=== PATIENT | male | born 1960 | race Caucasian/White ===

== ENCOUNTER 2020-08-27 09:09 | Outpatient (REF) | payer OTHER, SELFPAY | END 2020-08-27 09:10 | disposition home or self-care (01) | LOC: HO.HMGCLDS 09:09 | PROVIDERS: PCP Internal Medicine; Visit Provider Internal Medicine | DX: Z20.828 Contact with and (suspected) exposure to other viral communicable diseases (principal) | CPT/HCPCS: 87635 ==

== ENCOUNTER 2020-09-20 09:54 | Outpatient (REF) | payer OTHER, SELFPAY | END 2020-09-20 09:55 | disposition home or self-care (01) | LOC: HO.HMGCLDS 09:54 | PROVIDERS: Visit Provider Internal Medicine | DX: Z20.828 Contact with and (suspected) exposure to other viral communicable diseases (principal) | CPT/HCPCS: C9803; U0003 ==

== ENCOUNTER 2022-10-04 08:51 | Outpatient (REF) | payer OTHER, SELFPAY ==
[2022-10-04 11:01] LABS: MANUAL DIFF FLAG NO
[2022-10-04 11:03] LABS: Basophils Absolute Auto 0.1 X10*3/uL (0.0-0.2); Basophils Percent Auto 1.2 % (0-2); Eosinophils Absolute Auto 0.2 X10*3/uL (0.0-0.4); Hematocrit 46.3 % (42.0-52.0); Hemoglobin 16.6 g/dl (14.0-18.0); Imm Gran Abs Auto 0.02 X10*3/uL (0.00-0.03); Imm Gran Pct Auto 0.3 % (0.0-0.4); Lymphocytes Absolute Auto 2.3 X10*3/uL (1.2-4.9); Lymphocytes Percent Auto 33.8 % (20-40); Mean Corpuscular HGB Conc 35.9 g/dl (31.0-36.0); Mean Corpuscular Volume 94.9 fL (80.0-98.0); Monocytes Absolute Auto 0.5 X10*3/uL (0.1-1.2); Monocytes Percent Auto 7.7 % (2-11); Neutrophils Absolute Auto 3.6 x10*3/uL (2.0-8.3); Platelet Count 161 X10*3/uL (160-400); Red Blood Count 4.88 X10*6/uL (4.60-5.80); Red Cell Distribution Width 11.9 % (11.0-16.0); White Blood Count 6.7 X10*3/uL (4.8-10.8)
[2022-10-04 11:29] LABS: Creatinine Urine 106.17 mg/dL; Microalbum/Creatinine Ratio Ur 32.9 ug/mg cr
[2022-10-04 11:57] LABS: Estimated Average Glucose 278 mg/dL; Hemoglobin A1c % 11.3 %
[2022-10-04 12:18] LABS: Alanine Aminotransferase 94 U/L (0-40); Albumin Level 4.5 g/dL (3.5-5.0); Alkaline Phosphatase 98 U/L (39-117); Anion Gap 13 (12-20); Aspartate Amino Transferase 49 U/L (5-37); Bilirubin Total 1.4 mg/dL (0.0-1.0); Blood Urea Nitrogen 10 mg/dL (9-16); Calcium 9.1 mg/dL (8.4-10.2); Carbon Dioxide 28 mmol/L (22-29); Chloride 97 mmol/L (96-108); Cholesterol 128 mg/dL; Estimated Glomerular Filt Rate > 60; Glucose Fasting 294 mg/dL (60-99); HDL Cholesterol 43 mg/dL; Iron 156 mcg/dL (45-160); LDL Cholesterol Calculated 61 mg/dl; PSA,Total (Free>4and<10) 1.54 ng/mL (0.00-4.00); Percent Iron Saturation 53 % (15-50); Sodium 134 mmol/L (135-145); Total Iron Binding Capacity 297 mcg/dL (228-428); Total Protein 7.5 g/dL (6.5-8.0); Triglycerides 122 mg/dL; Unsaturated Iron Binding 141 ug/dL
== END 2022-10-04 08:52 | disposition home or self-care (01) ==
LOC: HO.HMGCLDS 08:51
PROVIDERS: PCP Internal Medicine; Visit Provider Internal Medicine
DX: Z00.00 Encounter for general adult medical examination without abnormal findings (principal); Z12.5 Encounter for screening for malignant neoplasm of prostate; E11.9 Type 2 diabetes mellitus without complications; I25.10 Atherosclerotic heart disease of native coronary artery without angina pectoris; E83.119 Hemochromatosis, unspecified
CPT/HCPCS: 36415; 80053; 80061; 82043; 83036; 83540; 84153; 85025

== ENCOUNTER → 2022-10-31 11:09 | Outpatient (BNV) | payer OTHER, SELFPAY | PROVIDERS: PCP Internal Medicine; Referring Provider Internal Medicine; Visit Provider Internal Medicine | DX: E83.119 Hemochromatosis, unspecified (principal); Z91.198 Patient's noncompliance with other medical treatment and regimen for other reason | CPT/HCPCS: 99204; 99213; 99214 ==

== ENCOUNTER 2022-11-25 10:54 | Outpatient (REF) | payer OTHER, SELFPAY | END 2022-11-25 10:55 | disposition home or self-care (01) | LOC: HO.BBR 10:54 | PROVIDERS: PCP Internal Medicine; Visit Provider Internal Medicine | DX: Z13.89 Encounter for screening for other disorder (principal) ==

== ENCOUNTER 2023-09-10 10:59 | Outpatient (AMB) | payer OTHER, SELFPAY ==
[2023-09-10 11:06] VITALS: BP 142/80; PULSE 75; O2SAT 96; BMI 37.0
--- NOTE | 2023-09-10 11:06 | MHC.PC.OV ---
Vital Signs 09/10/23 11:06 Height 5 ft 6 in Weight 229 lb BMI 37.0 BP 142/80 H Blood Pressure Location Rt brachial Position Sitting Pulse 75 Pulse Source Pulse Oximeter Pulse Oximetry (%) 96 Oxygen Delivery Method Room Air Intake Visit Reasons: shoulder pain Intake Note: Pt is here today for a sick visit. Pt c/o R should pain that goes down to his elbow and hand. Pt states that it has been going on for last 4 months. Allergies dulaglutide [From [facility]] Adverse Reaction (Intermediate, Verified 09/10/23 11:45) Nausea Medication List - Last Reconciled 09/10/23 by Maine Wheat MD atorvastatin 80 mg PO DAILY FreeStyle Lite Meter (blood-glucose meter) As directed to test blood sugar NS FreeStyle Lite Strips (blood sugar diagnostic) Test blood sugar once a day NS lancets (FreeStyle Lancets) Test blood sugar once a day metformin ER 750 mg PO BID metoprolol succinate ER 50 mg PO DAILY vardenafil 20 mg PO DAILY Tobacco use date assessed: 09/10/23 Dental Screening Dental Screen Date: 09/10/23 Did you have a dental visit in the last 12 months?: Yes Did you have a dental problem in the last 6 months where you did not have access to dental care?: No Was dental information given to patient?: Patient has dentist HPI shoulder pain HPI Details Pt c/o R shoulder pain for 5 months. Pt states shoulder pain worse when working lifting, pulling or pushing. He has been working every other day which helps with shoulder pain. Patient has been taking medications for diabetes hyperlipidemia and hypertension. He has been monitoring his blood glucose occasionally with the readings around 100-130 in the mornings. [facility] Medical History Hyperlipidemia HTN (hypertension) CAD (coronary artery disease) DM type 2 (diabetes mellitus, type 2) Annual physical exam Hemochromatosis Rosacea Fatty liver Surgical History Hx of anterior cruciate ligament surgery History of carpal tunnel syndrome Family History Father HTN (hypertension) Hemochromatosis Spinal cord tumor Mother Stroke Sister No problems noted. Son No problems noted. Daughter No problems noted. Daughter No problems noted. Social History Household Members: Significant Other Housing: Apartment Patient Tobacco Use Status: Never used Tobacco e-Cigarette/Vaping Use: Never Used service: No Current occupational status: unemployed Cognitive needs: No Hearing needs: No Vision needs: No Questionnaire AUDIT C Alcohol Use Questionnaire (AUDIT-C) 1. How often do you have a drink containing alcohol?: Monthly or less 2. How many drinks containing alcohol do you have on a typical day when you are drinking?: 1 or 2 3. How often do you have six or more drinks on one occasion?: Never Total Score: 1 Review of Systems Const All systems reviewed & are unremarkable except as noted in HPI and below Reports no additional complaints Eyes Reports no additional complaints ENT Reports no additional complaints Card Reports no additional complaints Resp Reports no additional complaints GI Reports no additional complaints Reports no additional complaints Physical exam (Primary Care) Vital Signs: Last Vital Signs Pulse 75 09/10/23 11:06 BP 142/80 H 09/10/23 11:06 Pulse Ox 96 09/10/23 11:06 Oxygen Delivery Method Room Air 09/10/23 11:06 BMI result Body Mass Index 37.0 Tobacco/Smoking Status: Tobacco use Status Tobacco use date assessed 09/10/23 09/10/23 11:16 Patient Tobacco Use Status Never used Tobacco 09/10/23 11:16 e-Cigarette/Vaping Use Never Used 09/10/23 11:11 Const General: no acute distress HENMT Ears: hearing grossly normal bilaterally General nose exam: Normal external nose present Resp Effort & Inspection: normal respiratory effort Auscultation: clear to auscultation bilaterally Cardio Rhythm: regular rhythm Heart sounds: S1 normal heart sound present and S2 normal heart sound present GI Inspection: Yes normal to inspection Palpation (GI): Soft to palpation Percussion: Yes normal to percussion Auscultation: normal bowel sounds Extrem Other: Tenderness over anterior and lateral aspect of right shoulder . there is significantly decreased range of motion Results AMB Hemoglobin A1c AMB Hemoglobin A1c 6.7 % Last Edit by LAURA Banerjee on 09/10/23 12:08 Assessment and Plan Assessment & Plan (1) DM type 2 (diabetes mellitus, type 2): Code(s): E11.9 - Type 2 diabetes mellitus without complications Plan: A1c is 6.7, ADA diet increase physical activity weight loss discussed with the patient he will continue metformin follow-up in 3 months with fasting labs before. Patient will be referred to podiatry for diabetic foot care (2) Hyperlipidemia: Code(s): E78.5 - Hyperlipidemia, unspecified Plan: Continue statin (3) HTN (hypertension): Code(s): I10 - Essential (primary) hypertension Plan: Increase metoprolol to 100 mg a day patient will return for blood pressure check in 2-3 weeks (4) Right shoulder pain: Code(s): M25.511 - Pain in right shoulder Plan: Check x-ray and refer to orthopedic surgeon Orders: Orders Comprehensive [place]. Panel Fast Today E11.9 - Type 2 diabetes mellitus without complications, E78.5 - Hyperlipidemia, unspecified, I10 - Essential (primary) hypertension Complete Blood Count Auto Diff Today E11.9 - Type 2 diabetes mellitus without complications, E78.5 - Hyperlipidemia, unspecified, I10 - Essential (primary) hypertension XR shoulder RT min 2V Today E11.9 - Type 2 diabetes mellitus without complications, E78.5 - Hyperlipidemia, unspecified, I10 - Essential (primary) hypertension AMB Hemoglobin A1c Today Z13.9 - Encounter for screening, unspecified Lipid Panel Today E11.9 - Type 2 diabetes mellitus without complications, E78.5 - Hyperlipidemia, unspecified, I10 - Essential (primary) hypertension Microalbumin, Random (w Creat) Today E11.9 - Type 2 diabetes mellitus without complications, E78.5 - Hyperlipidemia, unspecified, I10 - Essential (primary) hypertension Hemoglobin A1c 3 Months E11.9 - Type 2 diabetes mellitus without complications, E78.5 - Hyperlipidemia, unspecified, I10 - Essential (primary) hypertension, I25.10 - Atherosclerotic heart disease of [place] coronary artery without angina pectoris Comprehensive [place]. Panel Fast 3 Months E11.9 - Type 2 diabetes mellitus without complications, E78.5 - Hyperlipidemia, unspecified, I10 - Essential (primary) hypertension, I25.10 - Atherosclerotic heart disease of [place] coronary artery without angina pectoris Lipid Panel 3 Months E11.9 - Type 2 diabetes mellitus without complications, E78.5 - Hyperlipidemia, unspecified, I10 - Essential (primary) hypertension, I25.10 - Atherosclerotic heart disease of [place] coronary artery without angina pectoris Microalbumin, Random (w Creat) 3 Months E11.9 - Type 2 diabetes mellitus without complications, E78.5 - Hyperlipidemia, unspecified, I10 - Essential (primary) hypertension, I25.10 - Atherosclerotic heart disease of [place] coronary artery without angina pectoris Referrals Podiatry Referral E11.9 - Type 2 diabetes mellitus without complications, E78.5 - Hyperlipidemia, unspecified, I10 - Essential (primary) hypertension Orthopedics Referral E11.9 - Type 2 diabetes mellitus without complications, E78.5 - Hyperlipidemia, unspecified, I10 - Essential (primary) hypertension, M25.511 - Pain in right shoulder Medications: Changed From metoprolol succinate ER 50 mg PO DAILY 90 tabs 3RF To metoprolol succinate ER 100 mg (2 x 50 mg) PO DAILY 90 tabs 3RF Refilled metformin ER 750 mg PO BID 180 tabs 3RF vardenafil 20 mg PO DAILY 20 tabs 1RF Coding Level of Care Code Est Pt Level 4 (64128) Diagnoses DM type 2 (diabetes mellitus, type 2) E11.9 Hyperlipidemia E78.5 HTN (hypertension) I10 Right shoulder pain M25.511
== END 2023-09-10 12:17 | disposition home or self-care (01) ==
PROVIDERS: PCP Internal Medicine; Visit Provider Internal Medicine
DX: E11.9 Type 2 diabetes mellitus without complications (principal); E78.5 Hyperlipidemia, unspecified; I10 Essential (primary) hypertension; M25.511 Pain in right shoulder
CPT/HCPCS: 83036; 99214

== ENCOUNTER 2023-09-10 12:07 | Outpatient (REF) | payer OTHER, SELFPAY ==
--- NOTE | ~2023-09-10 | XR_ITS ---
EXAMINATION: XR SHOULDER, RIGHT CLINICAL INFORMATION: Right shoulder pain COMPARISON: MRI right shoulder 04/20/2008 TECHNIQUE: AP external rotation, Grashey, scapular Y, and axillary views of the right shoulder. FINDINGS: The bones are intact. No fracture. Glenohumeral and acromioclavicular alignment is anatomic. There is severe narrowing of the glenohumeral joint with areas of bone on bone appearance, large marginal osteophyte extending off the inferior aspect of the humeral head. There is a 0.9 cm ossific or calcific density near the superior aspect of the labrum which could represent a labral tear. 1.4 cm calcification is 60. To the distal clavicle. XR/XR shoulder RT min 2V IMPRESSION: Severe osteoarthritis of the glenohumeral joint.
== END 2023-09-10 12:08 | disposition home or self-care (01) ==
LOC: HO.HMGCX 12:07
PROVIDERS: PCP Internal Medicine; Visit Provider Internal Medicine
DX: M25.511 Pain in right shoulder (principal)
CPT/HCPCS: 73030

== ENCOUNTER 2023-09-12 07:45 | Outpatient (REF) | payer OTHER, SELFPAY ==
[2023-09-12 12:02] LABS: MANUAL DIFF FLAG NO
[2023-09-12 12:12] LABS: Basophils Absolute Auto 0.1 X10*3/uL (0.0-0.2); Basophils Percent Auto 0.9 % (0-2); Eosinophils Absolute Auto 0.3 X10*3/uL (0.0-0.4); Eosinophils Percent Auto 4.5 % (0-4); Hematocrit 45.3 % (42.0-52.0); Hemoglobin 15.6 g/dl (14.0-18.0); Imm Gran Abs Auto 0.01 X10*3/uL (0.00-0.03); Imm Gran Pct Auto 0.2 % (0.0-0.4); Lymphocytes Absolute Auto 1.8 X10*3/uL (1.2-4.9); Mean Corpuscular HGB Conc 34.4 g/dl (31.0-36.0); Mean Corpuscular Hemoglobin 33.9 pg (27.0-33.0); Mean Corpuscular Volume 98.5 fL (80.0-98.0); Mean Platelet Volume 10.5 fL (9.4-12.4); Monocytes Absolute Auto 0.5 X10*3/uL (0.1-1.2); Monocytes Percent Auto 8.2 % (2-11); Neutrophils Absolute Auto 3.3 x10*3/uL (2.0-8.3); Neutrophils Percent Auto 56.2 % (45-73); Platelet Count 144 X10*3/uL (160-400); Red Cell Distribution Width 12.8 % (11.0-16.0); White Blood Count 5.8 X10*3/uL (4.8-10.8)
[2023-09-12 12:21] LABS: Alanine Aminotransferase 38 U/L (0-40); Albumin Level 4.2 g/dL (3.5-5.0); Alkaline Phosphatase 87 U/L (39-117); Anion Gap 15 (12-20); Aspartate Amino Transferase 34 U/L (5-37); Bilirubin Total 2.1 mg/dL (0.0-1.0); Blood Urea Nitrogen 9 mg/dL (9-16); Calcium 9.2 mg/dL (8.4-10.2); Carbon Dioxide 25 mmol/L (22-29); Chloride 103 mmol/L (96-108); Cholesterol 160 mg/dL (<200); Estimated Glomerular Filt Rate > 60; Glucose Fasting 187 mg/dL (60-99); HDL Cholesterol 51 mg/dL (>40); LDL Cholesterol Calculated 74 mg/dL (<100); Potassium 3.8 mmol/L (3.3-5.1); Sodium 139 mmol/L (135-145); Total Protein 7.8 g/dL (6.5-8.0); Triglycerides 176 mg/dL (<150)
[2023-09-12 13:34] LABS: Creatinine Urine 223.63 mg/dL; Microalbum/Creatinine Ratio Ur 202.1 ug/mg cr (<30)
== END 2023-09-12 07:46 | disposition home or self-care (01) ==
LOC: HO.HMGCLDS 07:45
PROVIDERS: PCP Internal Medicine; Visit Provider Internal Medicine
DX: E78.5 Hyperlipidemia, unspecified (principal); E11.9 Type 2 diabetes mellitus without complications; I10 Essential (primary) hypertension
CPT/HCPCS: 36415; 80053; 80061; 82043; 82570; 85025

== ENCOUNTER 2023-10-01 08:19 | Outpatient (AMB) | payer OTHER, SELFPAY ==
--- NOTE | 2023-10-01 08:28 | MHC.OFFVIS ---
Intake Intake Visit Reasons: New Pt - right shoulder pain Intake Note: Norberto is a 63 year old right hand dominant male who presents today as new patient for a evaluation of his right shoulder pain and weakness. The patient states that he injured his right shoulder several years ago while chopping wood. He had acute onset of pain. Since that time his symptoms have gotten worse in spite of continued non operative treatments. He has done physical therapy for 12 weeks over the last 6 months as well as for 6 weeks over the last 3 months which aggravated his pain. He has tried Tylenol and anti-inflammatory medicines which gave him minimal relief. He has had injections which gave him no relief. The patient reports difficulty lifting his right hand above shoulder height. Allergies dulaglutide [From [facility]] Adverse Reaction (Intermediate, Verified 10/01/23 08:29) Nausea Medication List - Last Reconciled 10/01/23 by Fahad Bingham MD atorvastatin 80 mg PO DAILY FreeStyle Lite Meter (blood-glucose meter) As directed to test blood sugar NS FreeStyle Lite Strips (blood sugar diagnostic) Test blood sugar once a day NS lancets (FreeStyle Lancets) Test blood sugar once a day metformin ER 750 mg PO BID metoprolol succinate ER 100 mg (2 x 50 mg) PO DAILY vardenafil 20 mg PO DAILY [facility] Medical History Hyperlipidemia HTN (hypertension) CAD (coronary artery disease) DM type 2 (diabetes mellitus, type 2) Annual physical exam Hemochromatosis Rosacea Fatty liver Surgical History Hx of anterior cruciate ligament surgery History of carpal tunnel syndrome Family History Father HTN (hypertension) Hemochromatosis Spinal cord tumor Mother Stroke Sister No problems noted. Son No problems noted. Daughter No problems noted. Daughter No problems noted. Social History Household Members: Significant Other Housing: Apartment Patient Tobacco Use Status: Never used Tobacco e-Cigarette/Vaping Use: Never Used service: No Current occupational status: unemployed Cognitive needs: No Hearing needs: No Vision needs: No Physical Exam Const Other: Well-nourished well-developed very friendly male awake alert and oriented x3 in no acute distress Extrem Other: Bilateral upper extremity examination shows good capillary refill, no skin lesions noted, normal sensation light touch Right shoulder examination shows decreased range of motion when compared to his left shoulder, 4+ out of 5 strength with supraspinatus testing, positive impingement signs, tenderness over his acromioclavicular joint, no instability Results Reviewed Results Reviewed: X-rays of the patient's right shoulder show severe acromioclavicular joint narrowing, a type 2 acromion, mild to moderate glenohumeral joint degenerative changes Assessment & Plan Assessment & Plan (1) Right shoulder pain: Code(s): M25.511 - Pain in right shoulder Plan Mr. Granados presents with progressively worsening right shoulder pain and weakness possibly due to a full-thickness rotator cuff tear. Thus, I will send the patient for an MRI of his right shoulder to further evaluate the status of his rotator cuff tendons. I will see him back once the MRI is completed to discuss the findings and treatment options. Feel free to call me at any time should questions regarding his orthopedic management arise. Thank you very much for asking me to see this very friendly gentleman. I spent 22 minutes in reviewing the patient's records and imaging studies, seeing the patient and documenting in the medical record. Orders: Orders MR shoulder RT wo con Today M25.511 - Pain in right shoulder Coding Level of Care Code New Pt Level 2 (25808) Diagnoses Right shoulder pain M25.511
== END 2023-10-01 08:38 | disposition home or self-care (01) ==
PROVIDERS: PCP Internal Medicine; Visit Provider Orthopaedic Surgery
DX: M25.511 Pain in right shoulder (principal)
CPT/HCPCS: 99202

== ENCOUNTER → 2023-10-01 08:19 | Outpatient (BNVA) | payer OTHER, SELFPAY | PROVIDERS: PCP Internal Medicine; Visit Provider Orthopaedic Surgery ==

== ENCOUNTER 2023-10-22 14:57 | Outpatient (REF) | payer OTHER, SELFPAY ==
--- NOTE | ~2023-10-22 | MR_ITS ---
EXAMINATION: MR SHOULDER WITHOUT CONTRAST, RIGHT CLINICAL INFORMATION: Right shoulder pain. COMPARISON: Radiographs 09/10/2023. TECHNIQUE: MRI of the shoulder without contrast was performed on a high-field scanner. FINDINGS: ROTATOR CUFF: Supraspinatus tendinosis. No rotator cuff tear. No muscle atrophy or fatty infiltration. BICEPS: Proximal biceps tendinosis. CORACOACROMIAL ARCH: The undersurface of the acromion is flat with no subacromial spur. Moderate hypertrophic acromioclavicular osteoarthritis with a chronic ossification dorsally. LABRUM/CAPSULE: Diffuse degenerative tearing of the labrum. GLENOHUMERAL JOINT/MARROW: Extensive full-thickness cartilage loss with surface remodeling/concavity of the posterior glenoid and slight posterior subluxation of the humeral head. Large marginal osteophytes, particularly the inferomedial aspect of the humeral head. Small joint effusion. MR/MR shoulder RT wo con IMPRESSION: 1. Severe glenohumeral osteoarthritis. 2. Supraspinatus tendinosis. No rotator cuff tear. 3. Proximal biceps tendinosis. 4. Moderate hypertrophic acromioclavicular osteoarthritis.
== END 2023-10-22 14:58 | disposition home or self-care (01) ==
LOC: HO.MRI 14:57
PROVIDERS: PCP Internal Medicine; Visit Provider Orthopaedic Surgery
DX: M25.511 Pain in right shoulder (principal)
CPT/HCPCS: 73221

== ENCOUNTER 2023-10-28 14:14 | Outpatient (AMB) | payer OTHER, SELFPAY ==
--- NOTE | 2023-10-28 14:24 | MHC.OFFVIS ---
Intake Intake Visit Reasons: OV-Right shoulder MRI review Intake Note: Norberto is a 63 year old male who presents today for an MRI review of his right shoulder. States that his pain and stiffness have gotten worse over the last few years in spite of continued non operative treatments. The patient describes his right shoulder pain as sharp in nature. He has had injections in the past which gave him minimal relief. He has also done physical therapy exercises which aggravated his pain. The patient states that he has had difficulty lifting his right hand above shoulder height for the last year. He has tried Tylenol and anti-inflammatory medicines which gave him minimal relief. Allergies dulaglutide [From [facility]] Adverse Reaction (Intermediate, Verified 10/28/23 14:24) Nausea Medication List - Last Reconciled 10/28/23 by Fahad Bingham MD atorvastatin 80 mg PO DAILY FreeStyle Lite Meter (blood-glucose meter) As directed to test blood sugar NS FreeStyle Lite Strips (blood sugar diagnostic) Test blood sugar once a day NS lancets (FreeStyle Lancets) Test blood sugar once a day metformin ER 750 mg PO BID metoprolol succinate ER 100 mg PO DAILY vardenafil 20 mg PO DAILY [facility] Medical History Hyperlipidemia HTN (hypertension) CAD (coronary artery disease) DM type 2 (diabetes mellitus, type 2) Annual physical exam Hemochromatosis Rosacea Fatty liver Surgical History Hx of anterior cruciate ligament surgery History of carpal tunnel syndrome Family History Father HTN (hypertension) Hemochromatosis Spinal cord tumor Mother Stroke Sister No problems noted. Son No problems noted. Daughter No problems noted. Daughter No problems noted. Social History Household Members: Significant Other Housing: Apartment Patient Tobacco Use Status: Never used Tobacco e-Cigarette/Vaping Use: Never Used service: No Current occupational status: unemployed Cognitive needs: No Hearing needs: No Vision needs: No Physical Exam Const Other: Well-nourished well-developed very friendly male awake alert and oriented x3 in no acute distress Extrem Other: Bilateral upper extremity examination shows good capillary refill, no skin lesions noted, normal sensation light touch Right shoulder examination shows decreased active and passive range of motion when compared to his left shoulder, pain with range of motion, mild crepitus with range of motion, tenderness over his acromioclavicular joint, positive impingement signs, 5/5 strength with supraspinatus testing, no instability Results Reviewed Results Reviewed: MRI of the patient's right shoulder shows severe acromioclavicular joint narrowing, a type 2 acromion, moderate glenohumeral joint degenerative changes, signal change within the supraspinatus tendon most likely due to adhesive capsulitis Assessment & Plan Assessment & Plan (1) Right shoulder pain: Code(s): M25.511 - Pain in right shoulder Plan Mr. Granados presents with progressively worsening right shoulder pain and stiffness due to acromioclavicular joint arthritis, glenohumeral joint arthritis, impingement syndrome and adhesive capsulitis. I had a lengthy discussion with the patient regarding the treatment options. He wishes to hold off on total shoulder replacement surgery for as long as possible. I agree with this plan. The risks and benefits of right shoulder arthroscopic surgery were discussed at length with the patient. The patient wishes to proceed with surgery. Surgery will most likely involve right shoulder diagnostic arthroscopy with distal clavicle excision, acromioplasty, anterior capsular release, glenohumeral joint debride months and manipulation under anesthesia. The patient will contact my office to pick a surgery date. He will follow-up as instructed. Feel free to call me at any time should questions regarding his orthopedic management arise. I spent 22 minutes in reviewing the patient's records and imaging studies, seeing the patient and documenting in the medical record. Coding Level of Care Code Est Pt Level 2 (56585) Diagnoses Right shoulder pain M25.511
== END 2023-10-28 14:39 | disposition home or self-care (01) ==
PROVIDERS: PCP Internal Medicine; Visit Provider Orthopaedic Surgery
DX: M75.41 Impingement syndrome of right shoulder (principal); M19.011 Primary osteoarthritis, right shoulder
CPT/HCPCS: 99213

== ENCOUNTER → 2023-10-28 14:14 | Outpatient (BNVA) | payer OTHER, SELFPAY | PROVIDERS: PCP Internal Medicine; Visit Provider Orthopaedic Surgery ==

== ENCOUNTER 2023-11-26 10:05 | Outpatient (AMB) | payer OTHER, SELFPAY ==
[2023-11-26 10:08] VITALS: BMI 37.4
--- NOTE | 2023-11-26 10:08 | MHC.OFFVIS ---
Intake Vital Signs 11/26/23 10:08 Height 5 ft 6 in Weight 232 lb BMI 37.4 Intake Visit Reasons: Rt Shld 2/ Intake Note: Norberto is a 63 year old right hand dominant male who presents with progressively worsening right shoulder pain and stiffness. The patient states that he injured his right shoulder several years ago while chopping wood. He had acute onset of pain. Since that time his symptoms have gotten worse in spite of continued non operative treatments. He has done physical therapy for 12 weeks over the last 6 months as well as for 6 weeks over the last 3 months which aggravated his pain. He has tried Tylenol and anti-inflammatory medicines which gave him minimal relief. He has had injections which gave him no relief. The patient reports difficulty lifting his right hand above shoulder height. Allergies dulaglutide [From [facility]] Adverse Reaction (Intermediate, Verified 11/26/23 10:10) Nausea Medication List - Last Reconciled 11/26/23 by Fahad Bingham MD aspirin 81 mg PO DAILY atorvastatin 80 mg PO BEDTIME FreeStyle Lite Meter (blood-glucose meter) As directed to test blood sugar NS FreeStyle Lite Strips (blood sugar diagnostic) Test blood sugar once a day NS lancets (FreeStyle Lancets) Test blood sugar once a day metformin ER 750 mg PO BID metoprolol succinate ER 100 mg PO DAILY vardenafil 20 mg PO DAILY [facility] Medical History Severe obesity CAD (coronary artery disease) DM type 2 (diabetes mellitus, type 2) Annual physical exam Hemochromatosis Rosacea Fatty liver Hyperlipidemia HTN (hypertension) Surgical History Hx of CABG Hx of anterior cruciate ligament surgery History of carpal tunnel syndrome Family History Father HTN (hypertension) Hemochromatosis Spinal cord tumor Mother Stroke Sister No problems noted. Son No problems noted. Daughter No problems noted. Daughter No problems noted. Social History Household Members: Significant Other Housing: Apartment Patient Tobacco Use Status: Never used Tobacco e-Cigarette/Vaping Use: Never Used service: No Current occupational status: unemployed Cognitive needs: No Hearing needs: No Vision needs: No Physical Exam Vital Signs: BMI result Body Mass Index 37.4 Const Other: Well-nourished well-developed very friendly male awake alert and oriented x3 in no acute distress Lungs - clear to auscultation bilaterally with symmetric expansion Cardiovascular exam - regular rate and rhythm Abdominal exam - soft nontender nondistended Extrem Other: Bilateral upper extremity examination shows good capillary refill, no skin lesions noted, normal sensation light touch Right shoulder examination shows decreased active and passive range of motion when compared to his left shoulder, 5/5 strength with supraspinatus testing, positive impingement signs, tenderness over his acromioclavicular joint, no instability Results Reviewed Results Reviewed: MRI of the patient's right shoulder shows moderate glenohumeral joint degenerative changes, a type 2 acromion, severe acromioclavicular joint narrowing, signal change within the supraspinatus tendon due to adhesive capsulitis Assessment & Plan Assessment & Plan (1) Right shoulder pain: Code(s): M25.511 - Pain in right shoulder Plan Mr. Granados presents with progressively worsening right shoulder pain and stiffness due to impingement syndrome, acromioclavicular joint arthritis, glenohumeral joint arthritis and adhesive capsulitis. I had a lengthy discussion with the patient regarding the treatment options. At this point he has failed continued non operative treatments. The risks and benefits of right shoulder surgery were discussed at length with the patient. The patient wishes to proceed with surgery. Surgery will most likely involve right shoulder diagnostic arthroscopy with distal clavicle excision, acromioplasty, anterior capsular release and manipulation under anesthesia. The patient was given a prescription for Percocet at his preoperative appointment. He will follow-up as instructed. Feel free to call me at any time should questions regarding his orthopedic management arise. I spent 22 minutes in reviewing the patient's records and imaging studies, seeing the patient and documenting in the medical record. Medications: New oxycodone-acetaminophen 5-325 mg (Percocet) Partial Fill upon patient request. 2 tabs PO Q4H PRN 40 tabs 0RF pain Coding Level of Care Code Est Pt Level 2 (88238) Diagnoses Right shoulder pain M25.511
== END 2023-11-26 10:31 | disposition home or self-care (01) ==
PROVIDERS: PCP Internal Medicine; Visit Provider Orthopaedic Surgery
DX: M75.41 Impingement syndrome of right shoulder (principal); M19.011 Primary osteoarthritis, right shoulder
CPT/HCPCS: 99213

== ENCOUNTER → 2023-11-26 10:05 | Outpatient (BNVA) | payer OTHER, SELFPAY | PROVIDERS: PCP Internal Medicine; Visit Provider Orthopaedic Surgery ==

== ENCOUNTER 2023-12-03 09:18 | Outpatient (AMB) | payer OTHER, SELFPAY ==
--- NOTE | 2023-12-03 09:30 | MHC.PC.OV ---
Vital Signs 12/03/23 09:32 Height 5 ft 6 in Weight 233 lb BMI 37.6 BP 126/78 Blood Pressure Location Rt brachial Position Sitting Pulse 76 Pulse Source Pulse Oximeter Pulse Oximetry (%) 97 Oxygen Delivery Method Room Air Intake Visit Reasons: Pre Op 12/04/23 shoulder bone spurs Intake Note: Pt is here today for a pre op visit. Pt is having R shoulder surgery with Dr. Bingham tomorrow 12/04/23. Allergies dulaglutide [From [facility]] Adverse Reaction (Intermediate, Verified 12/03/23 09:38) Nausea Medication List - Last Reconciled 12/03/23 by Maine Wheat MD aspirin 81 mg PO DAILY atorvastatin 80 mg PO BEDTIME empagliflozin (Jardiance) 10 mg PO DAILY FreeStyle Lite Meter (blood-glucose meter) As directed to test blood sugar NS FreeStyle Lite Strips (blood sugar diagnostic) Test blood sugar once a day NS lancets (FreeStyle Lancets) Test blood sugar once a day metformin ER 750 mg PO BID metoprolol succinate ER 100 mg PO DAILY oxycodone-acetaminophen 5-325 mg (Percocet) 2 tabs PO Q4H PRN vardenafil 20 mg PO DAILY Tobacco use date assessed: 12/03/23 Dental Screening Dental Screen Date: 12/03/23 Did you have a dental visit in the last 12 months?: Yes Did you have a dental problem in the last 6 months where you did not have access to dental care?: No Was dental information given to patient?: Patient has dentist HPI Pre Op 12/04/23 shoulder bone spurs HPI Details Pt presents for preop for R shoulder severe osteoarthritis surgery. HTN, DM 2 hyperlipid, are stable on meds. PFSH Medical History Arthritis Myocardial infarction Severe obesity CAD (coronary artery disease) DM type 2 (diabetes mellitus, type 2) Annual physical exam Hemochromatosis Rosacea Fatty liver Hyperlipidemia HTN (hypertension) Surgical History Hx of CABG Hx of anterior cruciate ligament surgery History of carpal tunnel syndrome Family History Father HTN (hypertension) Hemochromatosis Spinal cord tumor Mother Stroke Sister No problems noted. Son No problems noted. Daughter No problems noted. Daughter No problems noted. Social History Household Members: Significant Other Housing: Apartment Are you a primary director critical care to a significant other at home: No Do you presently have visiting nurse or other home services: No Patient Tobacco Use Status: Never used Tobacco e-Cigarette/Vaping Use: Never Used service: No Current occupational status: unemployed Cognitive needs: No Hearing needs: No Vision needs: No Questionnaire PHQ-9 Over the last 2 weeks, how often have you been bothered by any of the following problems? 1. Little interest or pleasure in doing things: not at all 2. Feeling down, depressed, or hopeless: not at all 3. Trouble falling or staying asleep, or sleeping too much: nearly every day 4. Feeling tired or having little energy: nearly every day 5. Poor appetite or overeating: not at all 6. Feeling bad about yourself - or that you are a failure or have let yourself or your family down: not at all 7. Trouble concentrating on things, such as reading the newspaper or watching television: not at all 8. Moving or speaking so slowly that other people could have noticed. Or the opposite - being so fidgety or restless that you have been moving around a lot more than usual: not at all 9. Thoughts that you would be better off or of hurting yourself in some way: not at all Total score: 6 Depression Screening Interpretation: Negative Depression Screening Done: Yes Source: Developed by Drs. Felipe Paredes, Terri Enriquez, Renato Martinez and colleagues, with an educational brunilda from [employer]. Thrive Questionnaire Date Thrive assessed: 12/03/23 I am a: Patient What is your living situation today?: I have a steady place to live Within the past 12 months, did the food you bought not last and you didn't have the money to get more?: Never true Within the past 12 months, did you worry whether your food would run out before you got money to buy more?: Never true Do you have trouble paying for medicines?: No Do you have trouble getting transportation to medical appointments?: No Do you have trouble paying your heating and electricity bill?: No Do you have trouble taking care of your child, family member or friend?: No Do you have trouble with day-to-day activities such as bathing, preparing meals, shopping, managing finances, etc.?: No Are you currently unemployed and looking for a job?: No Are you interested in more education?: No Please select the resources that you would like help with: None Currently or been in a relationship where the following occur: no concerns reported THRIVE Score: 0 AUDIT C Alcohol Use Questionnaire (AUDIT-C) 1. How often do you have a drink containing alcohol?: Monthly or less 2. How many drinks containing alcohol do you have on a typical day when you are drinking?: 1 or 2 3. How often do you have six or more drinks on one occasion?: Never Total Score: 1 MORRIS-7 AMB Questionnaire MORRIS-7 Date MORRIS - 7 assessed: 12/03/23 Feeling nervous, anxious, or on edge: 0 = Not at all Not being able to stop or control worryin = Not at all Worrying too much about different things: 0 = Not at all Trouble relaxin = Not at all Being so restless that it is hard to sit still: 0 = Not at all Becoming easily annoyed or irritable: 0 = Not at all Feeling afraid as if something awful might happen: 0 = Not at all Total MORRIS-7 score (0-4 normal; 5-9 mild; 10-14 moderate; 15-21 severe): 0 Source: Developed by Drs. Felipe Paredes, Terri Enriquez, Renato Martinez and colleagues, with an educational brunilda from [employer]. Review of Systems Const All systems reviewed & are unremarkable except as noted in HPI and below Reports no additional complaints Eyes Reports no additional complaints ENT Reports no additional complaints Card Reports no additional complaints Resp Reports no additional complaints GI Reports no additional complaints Reports no additional complaints Physical exam (Primary Care) Vital Signs: Last Vital Signs Pulse 76 12/03/23 09:32 BP 126/78 12/03/23 09:32 Pulse Ox 97 12/03/23 09:32 Oxygen Delivery Method Room Air 12/03/23 09:32 BMI result Body Mass Index 37.6 Tobacco/Smoking Status: Tobacco use Status Tobacco use date assessed 12/03/23 12/03/23 09:41 Patient Tobacco Use Status Never used Tobacco 12/03/23 09:41 e-Cigarette/Vaping Use Never Used 12/03/23 09:31 PHQ-9: PHQ-9 Score PHQ-9: Total score 6 12/03/23 09:41 Depression Screening Interpretation: Negative Thrive Assessment: Date of Thrive Assessment Date Thrive assessed 12/03/23 12/03/23 09:41 Currently or been in a relationship where the following occur: no concerns reported Const General: no acute distress HENMT Head: Yes normal to inspection Ears: hearing grossly normal bilaterally General nose exam: Normal external nose present Face and sinus: Yes normal facial exam Mouth: Normal oral and palatal mucosa present Throat: Yes posterior oropharynx normal Eyes General: appearance normal, both eyes and all related structures Neck Neck: Yes no lymphadenopathy Chest Chest palpation & inspection: normal inspection of the chest Resp Effort & Inspection: normal respiratory effort Auscultation: clear to auscultation bilaterally Cardio Rhythm: regular rhythm Heart sounds: S1 normal heart sound present and S2 normal heart sound present GI Palpation (GI): Soft to palpation and No hepatosplenomegaly present Percussion: Yes normal to percussion Auscultation: normal bowel sounds Assessment and Plan Assessment & Plan (1) HTN (hypertension): Code(s): I10 - Essential (primary) hypertension Plan: CONTINUE METOPROLOL (2) DM type 2 (diabetes mellitus, type 2): Code(s): E11.9 - Type 2 diabetes mellitus without complications Plan: A1c is 7.3, ADA diet increase physical activity weight loss discussed with the patient, add 10 mg of Jardiance, continue metformin follow-up in 3 months with a fasting labs before (3) Hyperlipidemia: Code(s): E78.5 - Hyperlipidemia, unspecified Plan: Continue statin (4) Right shoulder pain: Comment: advanced OA on MR 12/23 Code(s): M25.511 - Pain in right shoulder Plan: EKG showed normal sinus rhythm no ST-T changes, patient is medically cleared for shoulder surgery Medications: New empagliflozin (Jardiance) 10 mg PO DAILY 90 tabs 1RF Coding Level of Care Code Est Pt Level 4 (14889) Diagnoses HTN (hypertension) I10 DM type 2 (diabetes mellitus, type 2) E11.9 Hyperlipidemia E78.5 Right shoulder pain M25.511
[2023-12-03 09:32] VITALS: BP 126/78; PULSE 76; O2SAT 97; BMI 37.6
== END 2023-12-03 11:03 | disposition home or self-care (01) ==
PROVIDERS: PCP Internal Medicine; Visit Provider Internal Medicine
DX: I10 Essential (primary) hypertension (principal); E11.9 Type 2 diabetes mellitus without complications; E78.5 Hyperlipidemia, unspecified; M25.511 Pain in right shoulder
CPT/HCPCS: 99214

== ENCOUNTER 2023-12-04 08:44 | Day surgery (SDC) | payer OTHER, SELFPAY ==
[2023-11-26 11:06] VITALS: BMI 36.8
--- NOTE | 2023-12-03 11:46 | HO.ANESPROP2 ---
Documented by User: Coreen Fagan NP 12/03/23 11:50 HPI - Anesthesia Eval Consult details Narrative: 63yo M for Right Shoulder Arthroscopy, distal clavicle excision, arcomioplasty, rotator cuff repair PCP cleared Hemachromotosis, last therapeutic phlebotomy 11/2022. H&H wnl 09/2023 CAD s/p CABG x 4 2018 [facility] Active Problems Active Problems: All Active Problems (Updated 12/03/23 @ 11:15 by Maine Wheat MD) Right shoulder pain (Acute) HTN (hypertension) (Acute) Hyperlipidemia (Acute) Hemochromatosis (Chronic) CAD (coronary artery disease) (Acute) DM type 2 (diabetes mellitus, type 2) (Acute) Annual physical exam (Acute) Past Medical History Medical History Arthritis Myocardial infarction Severe obesity CAD (coronary artery disease) DM type 2 (diabetes mellitus, type 2) Annual physical exam Hemochromatosis Rosacea Fatty liver Hyperlipidemia HTN (hypertension) Family History Family History Father HTN (hypertension) Hemochromatosis Spinal cord tumor Mother Stroke Sister No problems noted. Son No problems noted. Daughter No problems noted. Daughter No problems noted. Surgical History Surgical History Hx of CABG Hx of anterior cruciate ligament surgery History of carpal tunnel syndrome Social History Social History Household Members: Significant Other Housing: Apartment Are you a primary caregiver services home to a significant other at home: No Do you presently have visiting nurse or other home services: No Patient Tobacco Use Status: Never used Tobacco e-Cigarette/Vaping Use: Never Used Use of substances other than those prescribed or required for medical reasons: No Have you been hit, kicked, punched, or otherwise hurt by someone within the past year? If so, by whom?: No Advance Directives: No Advance Directives Information Provided: Yes Advance Directives on File: No Recently lost weight without trying: No Eating poorly because of decreased appetite: No Nutrition Risks: No Nutritional Risk Poor oral hygiene: No service: No Current occupational status: unemployed Cognitive needs: No Hearing needs: No Vision needs: No Meds Allergies Allergy/AdvReac Type Severity Reaction Status Date / Time dulaglutide [From [facility]] AdvReac Intermediate Nausea Verified 12/03/23 09:38 Active Medications: Current Medications Cefazolin Sodium/Dextrose (Ancef) 2 gm in 50 mls @ 100 mls/hr IV PREOP ONE Stop: 12/04/23 05:36 Home Medications Medication Instructions Recorded Confirmed Last Taken Type aspirin 81 mg tablet,delayed 81 mg PO DAILY 11/26/23 12/03/23 Unknown History release atorvastatin 80 mg tablet 80 mg PO BEDTIME 11/26/23 12/03/23 Unknown History Exam Height,Weight and Vital Signs: Height 5 ft 6 in Weight 103.419 kg Pertinent Lab Results Pertinent Lab Results: Laboratory Tests 09/12/23 09/12/23 07:52 09:52 WBC 5.8 Hgb 15.6 Hct 45.3 Plt Count 144 L Sodium 139 Potassium 3.8 Chloride 103 Carbon Dioxide 25 BUN 9 Creatinine 0.72 Narrative Narrative: EKG 12/2023 NSR (per clearance note, waveform not avaiable in expanse) Assessment and Plan Assessment Anesthesia Assessment: Chart Reviewed Documented by User: Sheree Kuhn MD 12/04/23 10:18 [facility] Past Medical History Medical History Arthritis Myocardial infarction Severe obesity CAD (coronary artery disease) DM type 2 (diabetes mellitus, type 2) Annual physical exam Hemochromatosis Rosacea Fatty liver Hyperlipidemia HTN (hypertension) Family History Family History Father HTN (hypertension) Hemochromatosis Spinal cord tumor Mother Stroke Sister No problems noted. Son No problems noted. Daughter No problems noted. Daughter No problems noted. Family history of problems with anesthesia: No Surgical History Surgical History Hx of CABG Hx of anterior cruciate ligament surgery History of carpal tunnel syndrome History of Problems with Anesthesia: No Social History Social History Household Members: Significant Other Housing: Apartment Are you a primary caregiver services home to a significant other at home: No Do you presently have visiting nurse or other home services: No Patient Tobacco Use Status: Never used Tobacco e-Cigarette/Vaping Use: Never Used Use of substances other than those prescribed or required for medical reasons: No Have you been hit, kicked, punched, or otherwise hurt by someone within the past year? If so, by whom?: No Advance Directives: No Advance Directives Information Provided: Yes Advance Directives on File: No Recently lost weight without trying: No Eating poorly because of decreased appetite: No Nutrition Risks: No Nutritional Risk Poor oral hygiene: No service: No Current occupational status: unemployed Cognitive needs: No Hearing needs: No Vision needs: No Meds Allergies Allergy/AdvReac Type Severity Reaction Status Date / Time dulaglutide [From [facility]] AdvReac Intermediate Nausea Verified 12/03/23 09:38 Home Medications Medication Instructions Recorded Confirmed Last Taken Type aspirin 81 mg tablet,delayed 81 mg PO DAILY 11/26/23 12/03/23 Unknown History release atorvastatin 80 mg tablet 80 mg PO BEDTIME 11/26/23 12/03/23 Unknown History Exam Airway Mallampati Class: III TM Dist: <=3cm Neck ROM: Full Heart: rrr Lungs: cta Assessment and Plan Assessment Anesthesia Assessment: Anesthesia Plan Discussed Final Anesthetic Review Family History of Problems with Anesthesia: No History of Problems with Anesthesia: No NPO: Yes ASA Class: III Final Preanesthetic Review: No Changes in Pt Med Stat, Meds/Allgs Chart Reviewed, Consent Obtained/Reviewed and Anes Risks/Benef Reviewed Patient Risk: High Procedure Risk: Intermediate Anesthetic Plan Anesthetic Plan: GA and Regional Block Disposition: Standard PACU
[2023-12-04] VITALS (9 sets, daily range): BP systolic 143–162; BP diastolic 80–98; PULSE 63–71; RESP 14–21; TEMP 36.1–37.2; O2SAT 90–100; BMI 37.7
[2023-12-04] MEDS: Lactated Ringers 1,000 ML 100 ML IVCONT (10:13)
[2023-12-04 10:21] LABS: Glucose, Whole Blood 170 mg/dL (60-115)
--- NOTE | 2023-12-04 13:17 | PM.OP ---
Brief Operative Note Date of Service: 12/04/23 Pre-op diagnosis: Left shoulder impingement syndrome, left shoulder acromioclavicular joint arthritis, left shoulder glenohumeral joint arthritis, left shoulder adhesive capsulitis Post-op diagnosis: same Procedure: Left shoulder diagnostic arthroscopy with left shoulder arthroscopic distal clavicle excision, left shoulder arthroscopic acromioplasty, left shoulder arthroscopic glenohumeral joint debridement, left shoulder arthroscopic anterior capsular release, left shoulder manipulation under anesthesia Implants: none Surgeon: Fahad Bingham MD Anesthesia: GETA and regional Was an Legal Process Specialist used for this Procedure?: No Estimated blood loss (mL): 10 Pathology: none sent Condition: stable Disposition: PACU
--- NOTE | 2023-12-04 13:18 | P.OP_ITS ---
Operative Note Operative Note Date of Service: 12/04/23 Narrative: After the patient was identified as Norberto Granados and his right shoulder was initialed by myself the patient was brought to the holding area where a right shoulder interscalene regional block was performed by the anesthesiologist in routine fashion. The patient was then brought to the operating room where general anesthesia was induced by the anesthesiologist in routine fashion. The patient was given 2 g of IV Ancef preoperatively for infection prophylaxis. Examination under anesthesia of the patient's right shoulder showed decreased range of motion when compared to the left shoulder. The patient's right should er had forward flexion to 90 degrees compared to 170 degrees, external rotation to 20 degrees compared to 60 degrees, and internal rotation to 20 degrees compared to 40 degrees. The patient was gently positioned in the beach chair position with all bony prominences well padded. The patient's right shoulder region and upper extremity were prepped and draped in sterile fashion. A formal time-out was completed. A #11 scalpel blade was used to make a posterior portal 2 cm inferior and 1 cm medial to the posterolateral corner of the acromion. Blunt trocar technique was used to enter the glenohumeral joint in routine fashion. An anterior portal was made just lateral to the coracoid process after proper positioning was confirmed using a spinal needle. Diagnostic arthroscopy showed diffuse grade 2 and 3 degenerative changes of the glenoid articular surface as well as diffuse grade 3 and 4 degenerative changes of the humeral head articular surface. The articular surface of the glenoid was smooth so no chondroplasty was indicated. The articular surface of the humeral head was then made smooth using the arthroscopic shaver. There was no evidence of rotator cuff tearing. There was no evidence of injury to the biceps tendon or its insertion onto the glenoid. There was inflammation of the anterior joint capsule consistent with adhesive capsulitis. The ArthroCare Wand was then used to perform an anterior capsular release between the inferior border of the biceps tendon and the superior border of the subscapularis tendon. The arthroscope was then placed from the posterior portal into the subacromial space. A lateral portal was made 2 fingerbreadths lateral to the anterior lateral corner of the acromion. The ArthroCare Wand was used to ablate soft tissues along the undersurface of the acromion as well as to excise the coracoacromial ligament. There was a sharp spur along the undersurface of the acromion which was removed using the hooded bur. The arthroscope was then placed into the lateral portal and the acromioplasty was completed with the bur in the posterior portal using the posterior aspect of the acromion as a cutting block. The ArthroCare Wand was then brought in through the anterior portal and was used to ablate soft tissues along the acromioclavicular joint and distal clavicle. The posterior and superior ligamentous structures were left intact. A distal clavicle excision of 8 mm was performed using the hooded bur. Any remaining bursal tissue was removed using the arthroscopic shaver. The subacromial space was irrigated and then drained. All arthroscopic instruments were removed. A gentle manipulation under anesthesia was then performed. Following the manipulation the patient's right shoulder had passive forward flexion to 150 degrees, external rotation to 50 degrees and internal rotation to 30 degrees. The 3 portals were closed with 3-0 nylon interrupted suture. The subacromial space was injected with Marcaine. Dry sterile dressing was placed over all incisions. The patient's right upper extremity was placed into a sling. The patient was awoken and extubated in the operating room. The patient was transferred to the recovery room in stable condition.
[2023-12-04] MEDS: fentaNYL citrate/PF 100 MCG/2 ML VIAL 50 MCG IVPUSH (13:35)
[2023-12-04] MEDS: oxyCODONE HCl Immed Release 5 MG TABLET PO (13:36)
[2023-12-04] MEDS: cefTRIAXone sodium 1 GM in 0.9 % Sodium Chloride 50 ML IV (13:46)
== END 2023-12-04 15:20 | disposition home or self-care (01) ==
PROVIDERS: PCP Internal Medicine; Visit Provider Orthopaedic Surgery
PROC: (CPT 29805; principal; 2023-12-04 11:00)
DX: M75.41 Impingement syndrome of right shoulder (principal); M19.011 Primary osteoarthritis, right shoulder; M75.01 Adhesive capsulitis of right shoulder; I10 Essential (primary) hypertension; E78.5 Hyperlipidemia, unspecified; I25.10 Atherosclerotic heart disease of native coronary artery without angina pectoris; Z95.1 Presence of aortocoronary bypass graft; E11.9 Type 2 diabetes mellitus without complications; E66.01 Morbid (severe) obesity due to excess calories; Z68.37 Body mass index [BMI] 37.0-37.9, adult; Z79.82 Long term (current) use of aspirin; Z79.84 Long term (current) use of oral hypoglycemic drugs; Z79.899 Other long term (current) drug therapy; Z88.8 Allergy status to other drugs, medicaments and biological substances
CPT/HCPCS: 29824; 29825; 29822; 29826; 82947; J0131; J0171; J0665; J0690; J0696; J2250; J2405; J2704; J2795; J3010

== ENCOUNTER 2023-12-17 11:08 | Outpatient (AMB) | payer OTHER, SELFPAY ==
--- NOTE | 2023-12-17 11:10 | A.OFFVIS_ITS ---
Intake Intake Visit Reasons: PO-Rt Shld 12/04/23 Intake Note: Norberto 63 yr old male presents today for his P/O visit for his right shoulder from 12/04/[address] Bingham. Dressing removed in office, states he is having pain especially at night time. Reports his bruising is also improving. Also states he needs refills on his pain medication. Allergies dulaglutide [From [facility]] Adverse Reaction (Intermediate, Verified 12/03/23 09:38) Nausea HPI PO-Rt Shld 12/04/23 HPI Details 63-year-old male who returns to the [facility] today for post-op right shoulder , 12/04/[address] Bingham. He continues to have pain which is aggravated at night and reports his bruising has been improving. He also requests a refill for his pain medication. He is doing well overall and has no other concerns today. [facility] Medical History Arthritis Myocardial infarction Severe obesity CAD (coronary artery disease) DM type 2 (diabetes mellitus, type 2) Annual physical exam Hemochromatosis Rosacea Fatty liver Hyperlipidemia HTN (hypertension) Surgical History Hx of CABG Hx of anterior cruciate ligament surgery History of carpal tunnel syndrome Family History Father HTN (hypertension) Hemochromatosis Spinal cord tumor Mother Stroke Sister No problems noted. Son No problems noted. Daughter No problems noted. Daughter No problems noted. Social History Household Members: Significant Other Housing: Apartment Are you a primary senior care specialist to a significant other at home: No Do you presently have visiting nurse or other home services: No Patient Tobacco Use Status: Never used Tobacco e-Cigarette/Vaping Use: Never Used service: No Current occupational status: unemployed Cognitive needs: No Hearing needs: No Vision needs: No Review of Systems Const All systems reviewed & are unremarkable except as noted in HPI and below Physical Exam Extrem Other: Right shoulder: Incision clean, dry and intact. No erythema or drainage. Forward flexion to 90 degrees, external rotation to 45 degrees, internal rotation to back pocket. NVI. Results Reviewed Results Reviewed: Date of Service: 12/04/23 Pre-op diagnosis: Left shoulder impingement syndrome, left shoulder acromioclavicular joint arthritis, left shoulder glenohumeral joint arthritis, left shoulder adhesive capsulitis Post-op diagnosis: same Procedure: Left shoulder diagnostic arthroscopy with left shoulder arthroscopic distal clavicle excision, left shoulder arthroscopic acromioplasty, left shoulder arthroscopic glenohumeral joint debridement, left shoulder arthroscopic anterior capsular release, left shoulder manipulation under anesthesia Implants: none Surgeon: Fahad Bingham MD Assessment & Plan Assessment & Plan (1) Tendinitis of right rotator cuff: Code(s): M75.81 - Other shoulder lesions, right shoulder (2) Osteoarthritis of right shoulder: Code(s): M19.011 - Primary osteoarthritis, right shoulder Qualifiers: Osteoarthritis type: primary Qualified Code(s): M19.011 - Primary osteoarthritis, right shoulder Plan Sutures removed today, steri strips applied. I stressed the importance of working on his home exercises program and gave him a course of physical therapy to work on gentle ROM, periscapular stabilization and RTC strengthening. I did explain that 4-6 weeks is the typical time frame for healing and he should avoid any type of heavy lifting or reaching till time being and increase activity as tolerated with physical therapy. I also sent him a prescription refill for Percocet to take every 6-8 hours as needed. I also put in an order for naproxen to take twice a day for his pain. I would like to see him back in [address] Bingham, sooner if needed. Orders: Orders PT Evaluation and Treatment Today M19.011 - Primary osteoarthritis, right shoulder, M75.81 - Other shoulder lesions, right shoulder Medications: New naproxen 500 mg PO BID 60 tabs 3RF 30 days S93.409A - Sprain of unspecified ligament of unspecified ankle, initial encounter Changed From oxycodone-acetaminophen 5-325 mg (Percocet) Partial Fill upon patient request. 2 tabs PO Q4H PRN 40 tabs 0RF pain To oxycodone-acetaminophen 5-325 mg (Percocet) Partial Fill upon patient request. 2 tabs PO Q6H PRN 28 tabs 0RF pain Patient Instructions: Scribed for Sherrill Esquivel PA-C, by Marc Smith, medical equipment repair technician, on 12/17/2023 at 11:15 AM EAN. Sherrill Herman PA-C, have personally reviewed and agree with the information entered by the scribe. Coding Level of Care Code Global (80701) Diagnoses Tendinitis of right rotator cuff M75.81 Primary osteoarthritis of right shoulder M19.011 Osteoarthritis type: primary
== END 2023-12-17 11:47 | disposition home or self-care (01) ==
PROVIDERS: PCP Internal Medicine; Visit Provider Physician Assistant
DX: M75.81 Other shoulder lesions, right shoulder (principal); M19.011 Primary osteoarthritis, right shoulder
CPT/HCPCS: 99024

== ENCOUNTER → 2023-12-17 11:08 | Outpatient (BNVA) | payer OTHER, SELFPAY | PROVIDERS: PCP Internal Medicine; Visit Provider Physician Assistant ==

== ENCOUNTER 2024-01-20 10:33 | Outpatient (AMB) | payer OTHER, SELFPAY ==
--- NOTE | 2024-01-20 10:49 | A.OFFVIS_ITS ---
Intake Vital Signs 01/20/24 10:50 Height 5 ft 6 in Weight 225 lb BMI 36.3 Intake Visit Reasons: ov-Rt shoulder As Intake Note: Norberto is a 63 year old Right hand dominate male who presents for a post operative appointment s/p his right shoulder on 12/04/2023 DRAsael Patient reports he is still having pain and having a hard time with sleeping. He has gone to Physical therapy and it went well. He has been taking Naprosyn or oxycodone which gave him good relief. Allergies [facility]ulaglutide [[facility] Adverse Reaction (Intermediate, Verified 01/20/24 10:53) Nausea Medication List - Last Reconciled 01/20/24 by Fahad Bingham MD aspirin 81 mg PO DAILY atorvastatin 80 mg PO BEDTIME empagliflozin (Jardiance) 10 mg PO DAILY FreeStyle Lite Meter (blood-glucose meter) As directed to test blood sugar NS FreeStyle Lite Strips (blood sugar diagnostic) Test blood sugar once a day NS lancets (FreeStyle Lancets) Test blood sugar once a day metformin ER 750 mg PO BID metoprolol succinate ER 100 mg PO DAILY naproxen 500 mg PO BID 30 days oxycodone-acetaminophen 5-325 mg (Percocet) 2 tabs PO Q8H PRN vardenafil 20 mg PO DAILY PFSH Medical History Arthritis Myocardial infarction Severe obesity CAD (coronary artery disease) DM type 2 (diabetes mellitus, type 2) Annual physical exam Hemochromatosis Rosacea Fatty liver Hyperlipidemia HTN (hypertension) Surgical History Hx of CABG Hx of anterior cruciate ligament surgery History of carpal tunnel syndrome Family History Father HTN (hypertension) Hemochromatosis Spinal cord tumor Mother Stroke Sister No problems noted. Son No problems noted. Daughter No problems noted. Daughter No problems noted. Social History (Updated 01/20/24 @ 10:56 by Cristina Mendes CMA) Household Members: Significant Other Housing: Apartment Are you a primary tire care manager to a significant other at home: No Do you presently have visiting nurse or other home services: No Patient Tobacco Use Status: Never used Tobacco e-Cigarette/Vaping Use: Never Used service: No Current occupational status: unemployed Current occupation: Right hand dominate Cognitive needs: No Hearing needs: No Vision needs: No Physical Exam Vital Signs: BMI result Body Mass Index 36.3 Extrem Other: Right shoulder examination shows that the surgical incisions are well healed, no erythema, forward flexion to 140 degrees, external rotation to 40 degrees, internal rotation to 40 degrees, minimal crepitus with range of motion Assessment & Plan Assessment & Plan (1) Right shoulder pain: Comment: advanced OA on MR 10/24 Code(s): M25.511 - Pain in right shoulder Plan Mr. Granados continues to do well after undergoing right shoulder arthroscopic surgery on 12/04/2023. He will continue going to formal physical therapy for now. Will gradually transition to a home exercise program. The do's and don'ts of lifting were discussed at length with the patient. I did refill his prescription for oxycodone. Will contact me prior to his follow-up appointment in 2 months should any questions or concerns arise. Feel free to call me at any time should questions regarding his orthopedic management arise. Medications: Changed From oxycodone-acetaminophen 5-325 mg (Percocet) Partial Fill upon patient request. 2 tabs PO Q6H PRN 28 tabs 0RF pain To oxycodone-acetaminophen 5-325 mg (Percocet) Partial Fill upon patient request. 2 tabs PO Q8H PRN 28 tabs 0RF pain Coding Level of Care Code Global (11518) Diagnoses Right shoulder pain M25.511
[2024-01-20 10:50] VITALS: BMI 36.3
== END 2024-01-20 11:07 | disposition home or self-care (01) ==
PROVIDERS: PCP Internal Medicine; Visit Provider Orthopaedic Surgery
DX: M25.511 Pain in right shoulder (principal)
CPT/HCPCS: 99024

== ENCOUNTER → 2024-01-20 10:33 | Outpatient (BNVA) | payer OTHER, SELFPAY | PROVIDERS: PCP Internal Medicine; Visit Provider Orthopaedic Surgery ==

== ENCOUNTER 2024-01-25 09:00 | Outpatient (RCR) | payer OTHER, SELFPAY ==
--- NOTE | 2024-07-13 11:53 | MHC.PT.DC ---
[facility] [place] Office [place] Office [place] Office [address] Syed Buitrago [address] [facility] [phone] F: [phone] F: [phone] F: [phone] F: [phone] Physical Therapy Discharge Report Diagnosis: Pre-op diagnosis: R shoulder impingement syndrome, R shoulder acromioclavicular joint arthritis, R shoulder glenohumeral joint arthritis, R shoulder adhesive capsulitis Procedure: R shoulder diagnostic arthroscopy with R shoulder arthroscopic distal clavicle excision, R shoulder arthroscopic acromioplasty, R shoulder arthroscopic glenohumeral joint debridement, R shoulder arthroscopic anterior capsular release, R shoulder manipulation under anesthesia Date of Surgery: 12/04/23 Date of Evaluation: 01/18/24 Date of Discharge: 04/04/24 Treatments to Date: 1 Cancellations to Date: No Shows to Date: Discharge Status: Patient Elected to Stop Discharge Summary: Pt progressed with ROM. updated HEP. ROM achieved in pain free zones. cues given for rows as compensatory patterns exist. Electronically signed by: Misbah Andrade PT Please sign and return to therapist. Thank you for your referral.
== END 2024-07-13 11:54 | disposition home or self-care (01) ==
LOC: HO.PTCHIC 09:00
PROVIDERS: PCP Internal Medicine; Visit Provider Physician Assistant
DX: M75.81 Other shoulder lesions, right shoulder (principal); M19.011 Primary osteoarthritis, right shoulder
CPT/HCPCS: 97110; 97140; 97161

== ENCOUNTER 2024-03-16 08:01 | Outpatient (REF) | payer OTHER, SELFPAY ==
[2024-03-16 10:35] LABS: Estimated Average Glucose 240 mg/dL
[2024-03-16 11:03] LABS: Alanine Aminotransferase 77 U/L (0-40); Albumin Level 4.3 g/dL (3.5-5.0); Alkaline Phosphatase 79 U/L (39-117); Anion Gap 15 (12-20); Aspartate Amino Transferase 81 U/L (5-37); Bilirubin Total 1.8 mg/dL (0.0-1.0); Blood Urea Nitrogen 11 mg/dL (9-16); Calcium 9.7 mg/dL (8.4-10.2); Carbon Dioxide 24 mmol/L (22-29); Chloride 103 mmol/L (96-108); Cholesterol 105 mg/dL (<200); Estimated Glomerular Filt Rate > 60; Glucose Fasting 182 mg/dL (60-99); HDL Cholesterol 41 mg/dL (>40); LDL Cholesterol Calculated 50 mg/dL (<100); Potassium 3.9 mmol/L (3.3-5.1); Sodium 138 mmol/L (135-145); Total Protein 7.6 g/dL (6.5-8.0); Triglycerides 72 mg/dL (<150)
[2024-03-16 11:27] LABS: Microalbum/Creatinine Ratio Ur 68.6 ug/mg cr (<30)
== END 2024-03-16 08:02 | disposition home or self-care (01) ==
LOC: HO.HMGCLDS 08:01
PROVIDERS: PCP Internal Medicine; Visit Provider Internal Medicine
DX: I10 Essential (primary) hypertension (principal); E78.5 Hyperlipidemia, unspecified; E11.9 Type 2 diabetes mellitus without complications; I25.10 Atherosclerotic heart disease of native coronary artery without angina pectoris
CPT/HCPCS: 36415; 80053; 80061; 82043; 82570; 83036

== ENCOUNTER 2024-03-17 09:10 | Outpatient (AMB) | payer OTHER, SELFPAY ==
[2024-03-17 09:14] VITALS: BP 110/66; PULSE 76; O2SAT 96; BMI 37.0
--- NOTE | 2024-03-17 09:14 | MHC.PC.OV ---
Vital Signs 03/17/24 09:14 Height 5 ft 6 in Weight 229 lb BMI 37.0 BP 110/66 Blood Pressure Location Rt brachial Position Sitting Pulse 76 Pulse Source Pulse Oximeter Pulse Oximetry (%) 96 Oxygen Delivery Method Room Air Intake Visit Reasons: Rescheduled from 03/02/24 Allergies dulaglutide [From [facility]] Adverse Reaction (Intermediate, Verified 03/17/24 09:19) Nausea Medication List - Last Reconciled 03/17/24 by Maine Wheat MD aspirin 81 mg PO DAILY atorvastatin 80 mg PO BEDTIME empagliflozin (Jardiance) 25 mg PO DAILY FreeStyle Lite Meter (blood-glucose meter) As directed to test blood sugar NS FreeStyle Lite Strips (blood sugar diagnostic) Test blood sugar once a day NS lancets (FreeStyle Lancets) Test blood sugar once a day metformin ER 750 mg orally One tablet q.a.m. and 2 tablets q.p.m.; 1 tabl qAM and 2 q PM metoprolol succinate ER 100 mg PO DAILY naproxen 500 mg PO BID 30 days vardenafil 20 mg PO DAILY Tobacco use date assessed: 03/17/24 Dental Screening Dental Screen Date: 12/03/23 HPI Rescheduled from 03/02/24 HPI Details Patient presents for the follow-up. He underwent right shoulder arthroscopic surgery in December and has been in physical therapy. He reports fasting glucose between 130-160 and has been walking more since his surgery. Hypertension hyperlipidemia are controlled on current medications [facility] Medical History (Updated 03/17/24 @ 09:54 by aMine Wheat MD) Arthritis Myocardial infarction Severe obesity CAD (coronary artery disease) DM type 2 (diabetes mellitus, type 2) Annual physical exam Hemochromatosis Rosacea Fatty liver Hyperlipidemia HTN (hypertension) Surgical History H/O shoulder surgery Hx of CABG Hx of anterior cruciate ligament surgery History of carpal tunnel syndrome Family History Father HTN (hypertension) Hemochromatosis Spinal cord tumor Mother Stroke Sister No problems noted. Son No problems noted. Daughter No problems noted. Daughter No problems noted. Social History Household Members: Significant Other Housing: Apartment Are you a primary care team assistant to a significant other at home: No Do you presently have visiting nurse or other home services: No Patient Tobacco Use Status: Never used Tobacco e-Cigarette/Vaping Use: Never Used service: No Current occupational status: unemployed Current occupation: Right hand dominate Cognitive needs: No Hearing needs: No Vision needs: No Questionnaire Thrive Questionnaire Date Thrive assessed: 12/03/23 MORRIS-7 AMB Questionnaire MORRIS-7 Date MORRIS - 7 assessed: 12/03/23 Source: Developed by Drs. Felipe Paredes, Terri Enriquez, Renato Martinez and colleagues, with an educational brunilda from [employer]. Review of Systems Const All systems reviewed & are unremarkable except as noted in HPI and below Eyes Reports no additional complaints ENT Reports no additional complaints Card Reports no additional complaints Resp Reports no additional complaints GI Reports no additional complaints Reports no additional complaints Physical exam (Primary Care) Vital Signs: Last Vital Signs Pulse 76 03/17/24 09:14 BP 110/66 03/17/24 09:14 Pulse Ox 96 03/17/24 09:14 Oxygen Delivery Method Room Air 03/17/24 09:14 BMI result Body Mass Index 37.0 Tobacco/Smoking Status: Tobacco use Status Tobacco use date assessed 03/17/24 03/17/24 09:20 Patient Tobacco Use Status Never used Tobacco 03/17/24 09:20 e-Cigarette/Vaping Use Never Used 03/17/24 09:15 Thrive Assessment: Date of Thrive Assessment Date Thrive assessed 12/03/23 03/17/24 09:15 Const General: no acute distress HENMT Head: Yes normal to inspection Eyes General: appearance normal, both eyes and all related structures Resp Effort & Inspection: normal respiratory effort Auscultation: clear to auscultation bilaterally Cardio Rhythm: regular rhythm Heart sounds: S1 normal heart sound present and S2 normal heart sound present GI Inspection: Yes normal to inspection Assessment and Plan Assessment & Plan (1) Hyperlipidemia: Code(s): E78.5 - Hyperlipidemia, unspecified Plan: Continue statin (2) DM type 2 (diabetes mellitus, type 2): Code(s): E11.9 - Type 2 diabetes mellitus without complications Plan: A1c is 10.0, ADA diet increase exercise weight loss discussed with the patient. Increase Jardiance to 25 mg and metformin to 750 mg in the morning and 1500 mg at night. Follow-up in 3 months with a fasting labs before (3) Severe obesity: Code(s): E66.01 - Morbid (severe) obesity due to excess calories Plan: Increase physical activity decrease caloric intake and weight loss discussed with the patient (4) Myocardial infarction: Comment: s/p 4 vessel CABG 12/16/2018 [facility] Code(s): I21.9 - Acute myocardial infarction, unspecified Plan: Continue 81 mg of aspirin high dose of statin and metoprolol Orders: Orders Hemoglobin A1c 3 Months E11.9 - Type 2 diabetes mellitus without complications, E66.01 - Morbid (severe) obesity due to excess calories, E78.5 - Hyperlipidemia, unspecified, I21.9 - Acute myocardial infarction, unspecified Microalbumin, Random (w Creat) 3 Months E11.9 - Type 2 diabetes mellitus without complications, E66.01 - Morbid (severe) obesity due to excess calories, E78.5 - Hyperlipidemia, unspecified, I21.9 - Acute myocardial infarction, unspecified Comprehensive [place]. Panel Fast 3 Months E11.9 - Type 2 diabetes mellitus without complications, E66.01 - Morbid (severe) obesity due to excess calories, E78.5 - Hyperlipidemia, unspecified, I21.9 - Acute myocardial infarction, unspecified Medications: New empagliflozin (Jardiance) 25 mg PO DAILY 90 tabs 2RF Changed From metformin ER 750 mg PO BID 180 tabs 3RF To metformin ER 1 tabl qAM and 2 q PM 750 mg PO BID 360 tabs 3RF From metformin ER 1 tabl qAM and 2 q PM 750 mg PO BID 360 tabs 3RF To metformin ER 750 mg orally One tablet q.a.m. and 2 tablets q.p.m.; 1 tabl qAM and 2 q PM 360 tabs 3RF Discontinued empagliflozin (Jardiance) Discontinued Reason: Doctor's Order 10 mg PO DAILY 90 tabs 1RF Coding Level of Care Code Est Pt Level 4 (59043) Diagnoses Hyperlipidemia E78.5 DM type 2 (diabetes mellitus, type 2) E11.9 Severe obesity E66.01 Myocardial infarction I21.9
== END 2024-03-17 10:01 | disposition home or self-care (01) ==
PROVIDERS: PCP Internal Medicine; Visit Provider Internal Medicine
DX: E11.69 Type 2 diabetes mellitus with other specified complication (principal); E66.01 Morbid (severe) obesity due to excess calories; Z68.37 Body mass index [BMI] 37.0-37.9, adult; E78.5 Hyperlipidemia, unspecified; I25.2 Old myocardial infarction
CPT/HCPCS: 99214

== ENCOUNTER 2024-03-23 09:58 | Outpatient (AMB) | payer OTHER, SELFPAY ==
--- NOTE | 2024-03-23 10:25 | MHC.OFFVIS ---
Vital Signs 03/23/24 10:26 Height 5 ft 6 in Weight 229 lb BMI 37.0 Intake Visit Reasons: ov-Rt shoulder As Intake Note: Norberto is a 63 year old male who presents for his post operative appointment s/p his Right shoulder on 12/04/2023 The patient reports mild intermittent discomfort in his right shoulder. He denies any fevers or chills. He continues with his home stretching program. Allergies dulaglutide [From [facility]] Adverse Reaction (Intermediate, Verified 03/23/24 10:29) Nausea Medication List - Last Reconciled 03/24/24 by Fahad Bingham MD aspirin 81 mg PO DAILY atorvastatin 80 mg PO BEDTIME empagliflozin (Jardiance) 25 mg PO DAILY FreeStyle Lite Meter (blood-glucose meter) As directed to test blood sugar NS FreeStyle Lite Strips (blood sugar diagnostic) Test blood sugar once a day NS lancets (FreeStyle Lancets) Test blood sugar once a day metformin ER 750 mg orally One tablet q.a.m. and 2 tablets q.p.m.; 1 tabl qAM and 2 q PM metoprolol succinate ER 100 mg PO DAILY naproxen 500 mg PO BID 30 days vardenafil 20 mg PO DAILY PFSH Medical History Arthritis Myocardial infarction Severe obesity CAD (coronary artery disease) DM type 2 (diabetes mellitus, type 2) Annual physical exam Hemochromatosis Rosacea Fatty liver Hyperlipidemia HTN (hypertension) Surgical History H/O shoulder surgery Hx of CABG Hx of anterior cruciate ligament surgery History of carpal tunnel syndrome Family History Father HTN (hypertension) Hemochromatosis Spinal cord tumor Mother Stroke Sister No problems noted. Son No problems noted. Daughter No problems noted. Daughter No problems noted. Social History Household Members: Significant Other Housing: Apartment Are you a primary child care education coordinator to a significant other at home: No Do you presently have visiting nurse or other home services: No Patient Tobacco Use Status: Never used Tobacco e-Cigarette/Vaping Use: Never Used service: No Current occupational status: unemployed Current occupation: Right hand dominate Cognitive needs: No Hearing needs: No Vision needs: No Physical Exam Vital Signs: BMI result Body Mass Index 37.0 Const Other: Well-nourished well-developed very friendly male awake alert and oriented x3 in no acute distress Extrem Other: Bilateral upper extremity examination shows good capillary refill, no skin lesions noted, normal sensation light touch Right shoulder examination shows that the surgical incisions are well healed, no erythema, minimal crepitus with range of motion, minimal discomfort with range of motion, no instability Assessment & Plan Assessment & Plan (1) Right shoulder pain: Comment: advanced OA on MR 10/24 Code(s): M25.511 - Pain in right shoulder Category: Medical Plan Mr. Granados continues to do very well after undergoing right shoulder arthroscopic surgery on 12/04/2023. He will continue with his home stretching program. The do's and don'ts of lifting were discussed at length with the patient. He will contact me prior to his follow-up appointment in 2 months should any questions or concerns arise. Feel free to call me at any time should questions regarding his orthopedic management arise. I spent 21 minutes in reviewing the patient's records and imaging studies, seeing the patient and documenting in the medical record. Coding Level of Care Code Est Pt Level 2 (23223) Diagnoses Right shoulder pain M25.511
[2024-03-23 10:26] VITALS: BMI 37.0
== END 2024-03-23 10:48 | disposition home or self-care (01) ==
PROVIDERS: PCP Internal Medicine; Visit Provider Orthopaedic Surgery
DX: M19.012 Primary osteoarthritis, left shoulder (principal)
CPT/HCPCS: 99213

== ENCOUNTER → 2024-03-23 09:58 | Outpatient (BNVA) | payer OTHER, SELFPAY | PROVIDERS: PCP Internal Medicine; Visit Provider Orthopaedic Surgery ==

== ENCOUNTER 2024-06-13 11:11 | Outpatient (AMB) | payer MEDICAID, SELFPAY ==
[2024-06-13 11:17] VITALS: BP 128/84; PULSE 82; O2SAT 98; BMI 37.9
--- NOTE | 2024-06-13 11:17 | MHC.PC.OV ---
Vital Signs 06/13/24 11:17 Height 5 ft 6 in Weight 235 lb BMI 37.9 BP 128/84 Blood Pressure Location Rt brachial Position Sitting Pulse 82 Pulse Source Pulse Oximeter Pulse Oximetry (%) 98 Oxygen Delivery Method Room Air Intake Visit Reasons: 3 month follow up Intake Note: Pt is here today for 3 months follow up visit. Allergies dulaglutide [From [facility]] Adverse Reaction (Intermediate, Verified 06/13/24 11:17) Nausea Medication List - Last Reconciled 06/13/24 by Maine Wheat MD aspirin 81 mg PO DAILY atorvastatin 80 mg PO BEDTIME empagliflozin (Jardiance) 25 mg PO DAILY FreeStyle Lite Meter (blood-glucose meter) As directed to test blood sugar NS FreeStyle Lite Strips (blood sugar diagnostic) Test blood sugar once a day NS lancets (FreeStyle Lancets) Test blood sugar once a day metformin ER 750 mg orally One tablet q.a.m. and 2 tablets q.p.m.; 1 tabl qAM and 2 q PM metoprolol succinate ER 100 mg PO DAILY naproxen 500 mg PO BID 30 days vardenafil 20 mg PO DAILY Tobacco use date assessed: 06/13/24 Dental Screening Dental Screen Date: 12/03/23 HPI 3 month follow up HPI Details Patient presents for the follow-up of type 2 diabetes and hyperlipidemia. He complains of persistent right shoulder pain since the surgery in December. He completed physical therapy after surgery, went back to work but developed worsening pain after lifting a heavy bag at work. Patient has a follow-up appointment with orthopedic surgeon. [facility] Medical History Arthritis Myocardial infarction Severe obesity CAD (coronary artery disease) DM type 2 (diabetes mellitus, type 2) Annual physical exam Hemochromatosis Rosacea Fatty liver Hyperlipidemia HTN (hypertension) Surgical History H/O shoulder surgery Hx of CABG Hx of anterior cruciate ligament surgery History of carpal tunnel syndrome Family History Father HTN (hypertension) Hemochromatosis Spinal cord tumor Mother Stroke Sister No problems noted. Son No problems noted. Daughter No problems noted. Daughter No problems noted. Social History Household Members: Significant Other Housing: Apartment Are you a primary care associate to a significant other at home: No Do you presently have visiting nurse or other home services: No Patient Tobacco Use Status: Never used Tobacco e-Cigarette/Vaping Use: Never Used service: No Current occupational status: unemployed Current occupation: Right hand dominate Cognitive needs: No Hearing needs: No Vision needs: No Questionnaire PHQ-9 Over the last 2 weeks, how often have you been bothered by any of the following problems? 1. Little interest or pleasure in doing things: not at all Source: Developed by Drs. Felipe Paredes, Terri Enriquez, Renato Martinez and colleagues, with an educational brunilda from [employer]. Thrive Questionnaire Date Thrive assessed: 06/13/24 I am a: Patient What is your living situation today?: I have a steady place to live Within the past 12 months, did the food you bought not last and you didn't have the money to get more?: Never true Within the past 12 months, did you worry whether your food would run out before you got money to buy more?: Never true Do you have trouble paying for medicines?: No Do you have trouble getting transportation to medical appointments?: No Do you have trouble paying your heating and electricity bill?: No Do you have trouble taking care of your child, family member or friend?: No Do you have trouble with day-to-day activities such as bathing, preparing meals, shopping, managing finances, etc.?: I choose not to answer this question Are you currently unemployed and looking for a job?: I choose not to answer this question Are you interested in more education?: I choose not to answer this question Please select the resources that you would like help with: Housing/Senior Living Currently or been in a relationship where the following occur: I choose not to answer THRIVE Score: 0 AUDIT C Alcohol Use Questionnaire (AUDIT-C) 1. How often do you have a drink containing alcohol?: 2-4 times a month 2. How many drinks containing alcohol do you have on a typical day when you are drinking?: 1 or 2 3. How often do you have six or more drinks on one occasion?: Never Total Score: 2 MORRIS-7 AMB Questionnaire MORRIS-7 Date MORRIS - 7 assessed: 06/13/24 Feeling nervous, anxious, or on edge: 0 = Not at all Not being able to stop or control worryin = Not at all Worrying too much about different things: 0 = Not at all Trouble relaxin = Not at all Being so restless that it is hard to sit still: 0 = Not at all Becoming easily annoyed or irritable: 0 = Not at all Feeling afraid as if something awful might happen: 0 = Not at all Total MORRIS-7 score (0-4 normal; 5-9 mild; 10-14 moderate; 15-21 severe): 0 Source: Developed by Drs. Felipe Paredes, Terri Enriquez, Renato Martinez and colleagues, with an educational brunilda from [employer]. Review of Systems Const All systems reviewed & are unremarkable except as noted in HPI and below Card Reports no additional complaints Resp Reports no additional complaints GI Reports no additional complaints Reports no additional complaints Physical exam (Primary Care) Vital Signs: Last Vital Signs Pulse 82 06/13/24 11:17 BP 128/84 06/13/24 11:17 Pulse Ox 98 06/13/24 11:17 Oxygen Delivery Method Room Air 06/13/24 11:17 BMI result Body Mass Index 37.9 Tobacco/Smoking Status: Tobacco use Status Tobacco use date assessed 06/13/24 06/13/24 11:17 Patient Tobacco Use Status Never used Tobacco 06/13/24 11:17 e-Cigarette/Vaping Use Never Used 06/13/24 11:17 Thrive Assessment: Date of Thrive Assessment Date Thrive assessed 06/13/24 06/13/24 11:29 Currently or been in a relationship where the following occur: I choose not to answer Const General: no acute distress HENMT Head: Yes normal to inspection Throat: Yes posterior oropharynx normal Neck Neck: Yes supple Resp Effort & Inspection: normal respiratory effort Auscultation: clear to auscultation bilaterally Cardio Rhythm: regular rhythm Heart sounds: S1 normal heart sound present and S2 normal heart sound present GI Inspection: Yes normal to inspection Palpation (GI): Soft to palpation Percussion: Yes normal to percussion Auscultation: normal bowel sounds Extrem Other: Significantly decreased range of motion right shoulder with active movements Results AMB Hemoglobin A1c AMB Hemoglobin A1c 7.6 % Last Edit by Jassi Moore CMA on 06/13/24 12:58 Results Reviewed Results Reviewed: Laboratory Last Values Hgb A1c (Clinic) 7.6 % (4.0-6.0) H 06/13/24 12:58 Assessment and Plan Assessment & Plan (1) HTN (hypertension): Code(s): I10 - Essential (primary) hypertension Plan: Continue metoprolol (2) Hyperlipidemia: Code(s): E78.5 - Hyperlipidemia, unspecified Plan: Continue atorvastatin (3) DM type 2 (diabetes mellitus, type 2): Code(s): E11.9 - Type 2 diabetes mellitus without complications Plan: A1c today 7.4 down from 10.0, ADA diet increase physical activity discussed with the patient. He will try low-dose of Ozempic 0.25 mg for the 1st month then increase to 0.5 mg. Follow-up in 3 months with a fasting labs before (4) Myocardial infarction: Comment: s/p 4 vessel CABG 12/16/2018 [facility] Code(s): I21.9 - Acute myocardial infarction, unspecified Plan: Follow-up with [facility] Cardiology Orders: Orders Hemoglobin A1c 3 Months E11.9 - Type 2 diabetes mellitus without complications, E78.5 - Hyperlipidemia, unspecified, I10 - Essential (primary) hypertension, I21.9 - Acute myocardial infarction, unspecified, I25.10 - Atherosclerotic heart disease of [place] coronary artery without angina pectoris AMB Hemoglobin A1c Today Z13.9 - Encounter for screening, unspecified Comprehensive [place]. Panel Fast 3 Months E11.9 - Type 2 diabetes mellitus without complications, E78.5 - Hyperlipidemia, unspecified, I10 - Essential (primary) hypertension, I21.9 - Acute myocardial infarction, unspecified, I25.10 - Atherosclerotic heart disease of [place] coronary artery without angina pectoris Complete Blood Count Auto Diff 3 Months E11.9 - Type 2 diabetes mellitus without complications, E78.5 - Hyperlipidemia, unspecified, I10 - Essential (primary) hypertension, I21.9 - Acute myocardial infarction, unspecified, I25.10 - Atherosclerotic heart disease of [place] coronary artery without angina pectoris Microalbumin, Random (w Creat) 3 Months E11.9 - Type 2 diabetes mellitus without complications, E78.5 - Hyperlipidemia, unspecified, I10 - Essential (primary) hypertension, I21.9 - Acute myocardial infarction, unspecified, I25.10 - Atherosclerotic heart disease of [place] coronary artery without angina pectoris Medications: New Ozempic (semaglutide) for 4 weeks, then 0.5 mg 0.25 mg (0.368 mL) subcut QWEEK 9 mL 1RF NS Changed From metformin ER 750 mg orally One tablet q.a.m. and 2 tablets q.p.m.; 1 tabl qAM and 2 q PM 360 tabs 3RF To metformin ER 750 mg bid 360 tabs 3RF Refilled vardenafil 20 mg PO DAILY 20 tabs 1RF metformin ER 750 mg bid 180 tabs 3RF Coding Level of Care Code Est Pt Level 4 (00415) Diagnoses HTN (hypertension) I10 Hyperlipidemia E78.5 DM type 2 (diabetes mellitus, type 2) E11.9 Myocardial infarction I21.9
== END 2024-06-13 12:17 | disposition home or self-care (01) ==
PROVIDERS: PCP Internal Medicine; Visit Provider Internal Medicine
DX: I10 Essential (primary) hypertension (principal); E78.5 Hyperlipidemia, unspecified; E11.69 Type 2 diabetes mellitus with other specified complication; I25.2 Old myocardial infarction
CPT/HCPCS: 83036; 99214

== ENCOUNTER → 2024-06-23 12:31 | Outpatient (BNVA) | payer OTHER, SELFPAY | PROVIDERS: PCP Internal Medicine; Visit Provider Orthopaedic Surgery ==

== ENCOUNTER 2025-08-11 09:31 | Outpatient (REF) | payer OTHER, SELFPAY ==
[2025-08-11 11:20] LABS: MANUAL DIFF FLAG NO
[2025-08-11 11:48] LABS: Hematocrit 45.5 % (42.0-52.0); Hemoglobin 16.0 g/dl (14.0-18.0); Imm Gran Abs Auto 0.01 X10*3/uL (0.00-0.03); Imm Gran Pct Auto 0.2 % (0.0-0.4); Lymphocytes Absolute Auto 1.5 X10*3/uL (1.2-4.9); Mean Corpuscular HGB Conc 35.2 g/dl (31.0-36.0); Mean Corpuscular Hemoglobin 34.0 pg (27.0-33.0); Mean Corpuscular Volume 96.8 fL (80.0-98.0); NRBC Abs Auto 0.000 X10*3/uL (0.0-0.012); NRBC Pct Auto 0.0 /100WBC (0.0-0.2); Platelet Count 148 X10*3/uL (160-400); Red Blood Count 4.70 X10*6/uL (4.60-5.80); White Blood Count 5.7 X10*3/uL (4.8-10.8)
[2025-08-11 12:33] LABS: Alanine Aminotransferase 44 U/L (0-40); Albumin Level 4.8 g/dL (3.5-5.0); Alkaline Phosphatase 75 U/L (39-117); Anion Gap 13 (12-20); Aspartate Amino Transferase 37 U/L (5-37); Blood Urea Nitrogen 9 mg/dL (9-16); Calcium 9.5 mg/dL (8.4-10.2); Carbon Dioxide 30 mmol/L (22-29); Chloride 103 mmol/L (96-108); Cholesterol 152 mg/dL (<200); Estimated Glomerular Filt Rate > 60; HDL Cholesterol 52 mg/dL (>40); Potassium 4.5 mmol/L (3.3-5.1); Sodium 141 mmol/L (135-145); Total Protein 8.1 g/dL (6.5-8.0); Triglycerides 95 mg/dL (<150)
[2025-08-11 12:40] LABS: Prostate Specific Antigen 1.52 ng/mL (<0.05-4.0)
[2025-08-11 13:04] LABS: Microalbum/Creatinine Ratio Ur 155.8 ug/mg cr (<30)
[2025-08-16 16:19] LABS: Vitamin D 25-OH, D2 <4 ng/mL; Vitamin D 25-OH, D3 20 ng/mL; Vitamin D 25-OH, Total 20 ng/mL (30-100)
== END 2025-08-11 09:32 | disposition home or self-care (01) ==
LOC: HO.LAB 09:31
PROVIDERS: PCP Internal Medicine; Visit Provider Internal Medicine
DX: Z00.00 Encounter for general adult medical examination without abnormal findings (principal); E11.9 Type 2 diabetes mellitus without complications; E83.119 Hemochromatosis, unspecified; E78.5 Hyperlipidemia, unspecified; I21.9 Acute myocardial infarction, unspecified; I10 Essential (primary) hypertension; N52.9 Male erectile dysfunction, unspecified
CPT/HCPCS: 36415; 80053; 80061; 82043; 82306; 82570; 84153; 84443; 85025

== ENCOUNTER 2025-08-11 09:31 | Outpatient (AMB) | payer OTHER, MEDICAID, SELFPAY ==
--- NOTE | 2025-08-11 09:40 | MHC.PC.OV ---
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: Not Required per policy Accompanied by: Self / Same As Patient Allergies dulaglutide (From Trulicity) Adverse Reaction (Intermediate, Verified 08/11/25 09:58) Nausea semaglutide (From Ozempic) Adverse Reaction (Intermediate, Verified 08/11/25 09:58) Nausea Tobacco use date assessed: 08/11/25 Dental Screening Dental Screen Date: 08/11/25 Did you have a dental visit in the last 12 months?: No Did you have a dental problem in the last 6 months where you did not have access to dental care?: No Was dental information given to patient?: Patient has dentist HPI HPI Comments History of Present Illness Details The patient is a 65-year-old male presenting for a wellness visit and management of chronic conditions. The patient has a history of Type 2 Diabetes Mellitus, currently managed with metformin 750 mg, and previously attempted medications such as Jardiance and Ozempic, which were discontinued due to adverse effects like nausea and vomiting. He monitors his blood glucose levels regularly and has an A1c of 6.8%. The patient has hypertension, for which he is currently taking metoprolol and was recently started on lisinopril due to elevated blood pressure readings during the visit. He reports erectile dysfunction, previously managed with vardenafil, which was ineffective, leading to a change to sildenafil. The patient has a history of hemochromatosis, diagnosed by a previous physician, with joint pain flare-ups attributed to elevated ferritin levels. He undergoes therapeutic phlebotomy as needed to manage this condition. He has a history of coronary artery bypass grafting performed in 2019 and has not seen a optical scientist in over a year. The patient is also managing hyperlipidemia with atorvastatin. Preventative care measures include a referral for a colonoscopy, which has been postponed multiple times, and vaccinations for COVID-19, pneumonia, and flu. [facility] Medical History Arthritis Myocardial infarction Severe obesity CAD (coronary artery disease) DM type 2 (diabetes mellitus, type 2) Annual physical exam Hemochromatosis Rosacea Fatty liver Hyperlipidemia HTN (hypertension) Surgical History H/O shoulder surgery Hx of CABG Hx of anterior cruciate ligament surgery History of carpal tunnel syndrome Family History Father HTN (hypertension) Hemochromatosis Spinal cord tumor Mother Stroke Sister No problems noted. Son No problems noted. Daughter No problems noted. Daughter No problems noted. Social History (Updated 08/11/25 @ 09:58 by LAURA Reich) Household Members: Significant Other Housing: Apartment Are you a primary health care assistant to a significant other at home: No Do you presently have visiting nurse or other home services: No Alcohol intake: current Alcohol intake frequency: holidays/special occasions only Patient Tobacco Use Status: Never used Tobacco e-Cigarette/Vaping Use: Never Used Second Hand Smoke Exposure: No service: No Current occupational status: unemployed Current occupation: Right hand dominate Cognitive needs: No Hearing needs: No Vision needs: No Questionnaire PHQ-9 Over the last 2 weeks, how often have you been bothered by any of the following problems? 1. Little interest or pleasure in doing things: not at all 2. Feeling down, depressed, or hopeless: not at all 3. Trouble falling or staying asleep, or sleeping too much: not at all 4. Feeling tired or having little energy: not at all 5. Poor appetite or overeating: not at all 6. Feeling bad about yourself - or that you are a failure or have let yourself or your family down: not at all 7. Trouble concentrating on things, such as reading the newspaper or watching television: not at all 8. Moving or speaking so slowly that other people could have noticed. Or the opposite - being so fidgety or restless that you have been moving around a lot more than usual: not at all 9. Thoughts that you would be better off or of hurting yourself in some way: not at all Total score: 0 Depression Screening Interpretation: Negative Depression Screening Done: Yes Source: Developed by Drs. Felipe Paredes, Terri Enriquez, Renato Martinez and colleagues, with an educational brunilda from [employer]. Thrive Questionnaire Date Thrive assessed: 08/10/25 I am a: Patient What is your living situation today?: I have a steady place to live Within the past 12 months, did the food you bought not last and you didn't have the money to get more?: Never true Within the past 12 months, did you worry whether your food would run out before you got money to buy more?: Never true Do you have trouble paying for medicines?: No Do you have trouble getting transportation to medical appointments?: No Do you have trouble paying your heating and electricity bill?: No Do you have trouble taking care of your child, family member or friend?: No Do you have trouble with day-to-day activities such as bathing, preparing meals, shopping, managing finances, etc.?: No Are you currently unemployed and looking for a job?: No Are you interested in more education?: No Please select the resources that you would like help with: None Currently or been in a relationship where the following occur: No concerns reported THRIVE Score: 0 AUDIT C Alcohol Use Questionnaire (AUDIT-C) 1. How often do you have a drink containing alcohol?: Monthly or less 2. How many drinks containing alcohol do you have on a typical day when you are drinking?: 1 or 2 3. How often do you have six or more drinks on one occasion?: Never Total Score: 1 MORRIS-7 AMB Questionnaire MORRIS-7 Date MORRIS - 7 assessed: 08/11/25 Feeling nervous, anxious, or on edge: 0 = Not at all Not being able to stop or control worryin = Not at all Worrying too much about different things: 0 = Not at all Trouble relaxin = Not at all Being so restless that it is hard to sit still: 0 = Not at all Becoming easily annoyed or irritable: 0 = Not at all Feeling afraid as if something awful might happen: 0 = Not at all Total MORRIS-7 score (0-4 normal; 5-9 mild; 10-14 moderate; 15-21 severe): 0 Source: Developed by Terri Meza Kurt Kroenke and colleagues, with an educational brunilda from [employer]. Review of Systems Const Details: Positives besides what was mentioned in HPI are in BOLD Constitutional: No Weight Change, No Fever, No Chills, No Night Sweats, No Fatigue, No Malaise ENT/Mouth: No Hearing Changes, No Ear Pain, No Nasal Congestion, No Sinus Pain, No Hoarseness, No sore throat, No Rhinorrhea, No Swallowing Difficulty Eyes: No Eye Pain, No Swelling, No Redness, No Foreign Body, No Discharge, No Vision Changes Cardiovascular: No Chest Pain, No SOB, No PND, No Dyspnea on Exertion, No Orthopnea, No Claudication, No Edema, No Palpitations Respiratory: No Cough, No Sputum, No Wheezing, No Smoke Exposure, No Dyspnea Gastrointestinal: No Nausea, No Vomiting, No Diarrhea, No Constipation, No Pain, No Heartburn, No Anorexia, No Dysphagia, No Hematochezia, No Melena, No Flatulence, No Jaundice Genitourinary: No Dysmenorrhea, No DUB, No Dyspareunia, No Dysuria, No Urinary Frequency, No Hematuria, No Urinary Incontinence, No Urgency, No Flank Pain, No Urinary Flow Changes, No Hesitancy Musculoskeletal: No Arthralgias, No Myalgias, No Joint Swelling, No Joint Stiffness, No Back Pain, No Neck Pain, No Injury History Skin: No Skin Lesions, No Pruritis, No Hair Changes, No Breast/Skin Changes, No Nipple Discharge Neuro: No Weakness, No Numbness, No Paresthesias, No Loss of Consciousness, No Syncope, No Dizziness, No Headache, No Coordination Changes, No Recent Falls Psych: No Anxiety/Panic, No Depression, No Insomnia, No Personality Changes, No Delusions, No Rumination, No SI/HI/AH/VH, No Social Issues, No Memory Changes, No Violence/Abuse Hx., No Eating Concerns Heme/Lymph: No Bruising, No Bleeding, No Transfusions History, No Lymphadenopathy Endocrine: No Polyuria, No Polydipsia, No Temperature Intolerance Physical exam (Primary Care) Vital Signs: Last Vital Signs Temp 97.1 F 08/11/25 09:48 Pulse 69 08/11/25 09:48 BP 162/90 H 08/11/25 09:48 Pulse Ox 94 08/11/25 09:48 Oxygen Delivery Method Room Air 08/11/25 09:48 BMI result Body Mass Index 37.6 Tobacco/Smoking Status: Tobacco use Status Tobacco use date assessed 08/11/25 08/11/25 10:01 Patient Tobacco Use Status Never used Tobacco 08/11/25 09:58 e-Cigarette/Vaping Use Never Used 08/11/25 09:58 PHQ-9: PHQ-9 Score PHQ-9: Total score 0 08/11/25 10:21 Depression Screening Interpretation: Negative Thrive Assessment: Date of Thrive Assessment Date Thrive assessed 08/10/25 08/11/25 09:40 Currently or been in a relationship where the following occur: No concerns reported Const Other: Pertinent findings are in BOLD GENERAL APPEARANCE NAD, activity normal for age, well developed/ well nourished, no cyanosis, pallor, or diaphoresis. EYES lids/conjunctiva normal. EARS/NOSE/THROAT Mucous membranes moist, nares normal, lips/teeth normal uvula midline without oral pharyngeal erythema, exudate or swelling TMs normal bilaterally. No lymphangitis/lymphedema. HEAD/NECK normocephalic atraumatic, no facial trauma, neck is supple. RESPIRATORY respiratory effort normal, speaks in full sentences, no tripod position, no accessory muscle use. Lungs clear to auscultation without rhonchi, wheezes, rales CARDIAC Regular rate and rhythm, no edema. ABDOMINAL Soft, ND/NT. No evidence of fluid wave. No pulsatile masses on exam, rebound tenderness, Cameron sign or pain over Mcburney's point. MUSCLES/EXTREMITIES No abnormal range of motion, no swelling. SKIN Warm, pink and dry. No rashes, dermatoses, petechiae or lesions. Face erythema. NEUROLOGICAL Speech is clear and appropriate. Normal level of consciousness. Gait and coordination are normal. 5/5 strength in all extremities. PSYCH Normal mood and affect. Judgement/competence is appropriate Results AMB Hemoglobin A1c AMB Hemoglobin A1c 6.8 % Last Edit by LAURA Reich on 08/11/25 10:03 Results Reviewed Results Reviewed: Laboratory Last Values Hgb A1c (Clinic) 6.8 % (4.0-6.0) H 08/11/25 09:45 Coding Level of Care Code New Pt Level 4 (89724) New Pt Prev Care 40-64y(97977) Diagnoses Healthcare maintenance Z00.00 Diabetes mellitus E11.9 Hemochromatosis E83.119 Hyperlipidemia E78.5 Myocardial infarction I21.9 HTN (hypertension) I10 Erectile dysfunction N52.9 Time Spent (min) 40 Assessment & Plan Assessment & Plan (1) Healthcare maintenance: Code(s): Z00.00 - Encounter for general adult medical examination without abnormal findings Category: Medical Plan: CBC, CMP, Lipid panel, A1C, TSH w T4, vit D. Ordered today. Shingles 2 doses when >50 yo. Retail pharamcy. COVID: two doses. Completed. Pneumococcal: 19-64. Completed. Flu vaccine: Retail pharamcy. Tdap: Next visit. Colonoscopy: 45-75. Ordered today. AAA: 65 -75. NI CT lun - 80. NI. PSA: 50 -70 every two years. Ordered today. HIV: Declined. HBV: Declined. HCV: Declined. (2) Diabetes mellitus: Code(s): E11.9 - Type 2 diabetes mellitus without complications Category: Medical Plan: - Continue metformin 750 mg daily - Monitor blood glucose levels regularly - A1c to be checked periodically - Podiatry referral placed. - Patient is seeing an wall covering contractor. Last seen in 11/2024. Patient aware that he needs to F-U on a yearly basis. (3) Hemochromatosis: Comment: f[place] [facility] [place]le[place] Code(s): E83.119 - Hemochromatosis, unspecified Category: Medical Plan: - Continue therapeutic phlebotomy as needed - Referral to hematology for further management (4) Hyperlipidemia: Code(s): E78.5 - Hyperlipidemia, unspecified Category: Medical Plan: Continue Atorvastatin. (5) Myocardial infarction: Comment: s/p 4 vessel CABG 12/16/2018 [facility] Code(s): I21.9 - Acute myocardial infarction, unspecified Category: Medical Plan: - Follow-up with cardiology recommended - Continue ASA and Metoprolol. (6) HTN (hypertension): Code(s): I10 - Essential (primary) hypertension Category: Medical Plan: Continue Lisinopril, Metoprolol. (7) Erectile dysfunction: Code(s): N52.9 - Male erectile dysfunction, unspecified Category: Medical Plan: Switched Valdenafil to Sildenafil. Plan During the visit, we discussed the management of the patient's chronic conditions, including Type 2 Diabetes Mellitus, hypertension, and erectile dysfunction. We reviewed the patient's medication regimen, discontinuing vardenafil and initiating sildenafil for erectile dysfunction. A referral to hematology was made for further management of hemochromatosis, and therapeutic phlebotomy was advised as needed. Preventative care measures were emphasized, including a referral for a colonoscopy and ensuring vaccinations are up to date. Orders: Orders AMB Hemoglobin A1c Today E11.9 - Type 2 diabetes mellitus without complications Complete Blood Count Auto Diff Today Z00.00 - Encounter for general adult medical examination without abnormal findings Comprehensive Met. Panel Today Z00.00 - Encounter for general adult medical examination without abnormal findings TSH reflex Free T4 Today Z00.00 - Encounter for general adult medical examination without abnormal findings Prostate Specific Antigen Today Z00.00 - Encounter for general adult medical examination without abnormal findings Microalbumin, Random (w Creat) Today Z00.00 - Encounter for general adult medical examination without abnormal findings Vitamin D 25-OH (D2 and D3) Today Z00.00 - Encounter for general adult medical examination without abnormal findings Lipid Panel Today Z00.00 - Encounter for general adult medical examination without abnormal findings Therapeutic Phlebotomy Today E83.119 - Hemochromatosis, unspecified Referrals Podiatry Referral E11.9 - Type 2 diabetes mellitus without complications Open Access Screening Colonoscopy Referral Z12.11 - Encounter for screening for malignant neoplasm of colon, Z12.12 - Encounter for screening for malignant neoplasm of rectum Hematology & Oncology Referral E83.119 - Hemochromatosis, unspecified Medications: New lisinopril 10 mg PO DAILY 90 tabs 3RF sildenafil (Viagra) administer 30 minutes to 4 hours before activity 50 mg PO DAILY PRN 10 tabs 3RF sexual activity Discontinued vardenafil Discontinued Reason: No Longer Medically Relevant 20 mg PO DAILY 20 tabs 1RF
[2025-08-11 09:48] VITALS: BP 162/90; PULSE 69; TEMP 36.2; O2SAT 94; BMI 37.6
== END 2025-08-11 10:50 | disposition home or self-care (01) ==
LOC: HO.HMCH 09:32
PROVIDERS: PCP Internal Medicine; Visit Provider Internal Medicine
DX: Z00.00 Encounter for general adult medical examination without abnormal findings (principal); E11.69 Type 2 diabetes mellitus with other specified complication; I25.2 Old myocardial infarction; E83.119 Hemochromatosis, unspecified; E78.5 Hyperlipidemia, unspecified; I10 Essential (primary) hypertension; N52.9 Male erectile dysfunction, unspecified

== ENCOUNTER 2025-09-11 08:15 | Outpatient (AMB) | payer OTHER, SELFPAY ==
[2025-09-11 08:24] VITALS: BMI 36.8
--- NOTE | 2025-09-11 08:24 | A.OFFVIS_ITS ---
Vital Signs 09/11/25 08:24 Height 5 ft 6 in Weight 228 lb BMI 36.8 Intake Visit Reasons: Type II Diabetes Intake Note: Norberto is a 65 year old male who presents today as a new patient for a Diabetic foot exam. His Glucose was 135 as of 09/10/25 and his last reported A1c was 6.8%. Patient experiences occasional bilateral numbness and tingling with burning and he notices this primarily at night. He denies any previous history of wounds or amputation to his feet. Allergies dulaglutide (From Trulicity) Adverse Reaction (Intermediate, Verified 09/11/25 08:25) Nausea semaglutide (From Ozempic) Adverse Reaction (Intermediate, Verified 09/11/25 08:25) Nausea Medication List - Last Reconciled 09/11/25 by Laure Luque DPM aspirin 81 mg PO DAILY atorvastatin 80 mg PO DAILY [Diabetic shoes and inserts As directed; please provide 1 pair of shoes and 3 inserts] FreeStyle Lite Meter (blood-glucose meter) As directed to test blood sugar NS FreeStyle Lite Strips (blood sugar diagnostic) Test blood sugar once a day NS lancets (FreeStyle Lancets) Test blood sugar once a day lisinopril 10 mg PO DAILY metformin ER 750 mg bid metoprolol succinate ER 100 mg PO DAILY sildenafil (Viagra) 50 mg PO DAILY PRN HPI Comments Details: The patient is a 65-year-old male with a past medical history as seen below presenting for a diabetic foot exam and bilateral flat feet. The patient reports experiencing intermittent pins and needles sensation in both feet, primarily occurring at night. These episodes last for about four to five seconds and occur sporadically, sometimes affecting one foot and then the other. In the mornings, the patient experiences puffiness in the feet, described as feeling like walking on a cushion. This swelling subsides as the day progresses, with no associated pain in the feet or ankles. He denies any recent pedal injuries. He denies any other pedal concerns. Patient states his blood glucose is 135 mg/dL and his most recent A1c is 6.8. [facility] Medical History (Updated 09/11/25 @ 08:44 by Laure Luque DPM) Tinea unguium Pes planus Diabetic neuropathy Arthritis Myocardial infarction Severe obesity CAD (coronary artery disease) DM type 2 (diabetes mellitus, type 2) Annual physical exam Hemochromatosis Rosacea Fatty liver Hyperlipidemia HTN (hypertension) Surgical History H/O shoulder surgery Hx of CABG Hx of anterior cruciate ligament surgery History of carpal tunnel syndrome Family History Father HTN (hypertension) Hemochromatosis Spinal cord tumor Mother Stroke Sister No problems noted. Son No problems noted. Daughter No problems noted. Daughter No problems noted. Social History (Updated 08/11/25 @ 09:58 by LAURA Reich) Household Members: Significant Other Housing: Apartment Are you a primary aged or disabled care worker to a significant other at home: No Do you presently have visiting nurse or other home services: No Alcohol intake: current Alcohol intake frequency: holidays/special occasions only Patient Tobacco Use Status: Never used Tobacco e-Cigarette/Vaping Use: Never Used Second Hand Smoke Exposure: No service: No Current occupational status: unemployed Current occupation: Right hand dominate Cognitive needs: No Hearing needs: No Vision needs: No Review of Systems Const Details: - Neurological: Reports intermittent pins and needles sensation in bilateral feet. - Musculoskeletal: Reports morning swab in feet. Denies pain in feet or ankles. All systems reviewed & are unremarkable except as noted in HPI and below Physical Exam Vital Signs: BMI result Body Mass Index 36.8 Extrem Other: Bilateral lower extremity focused physical exam: Derm: No open lesions abrasions or wounds noted. Toenails times 10 thickened, dystrophic, discolored with minimal subungual debris. No hyperkeratotic lesions. No interdigital maceration noted. No ecchymosis or discoloration noted. No clinical signs of infection. Vascular: DP pulses palpable. PT pulses nonpalpable. Edema noted to the feet and ankles bilaterally. Capillary refill time less than 3 seconds. Temperature gradient warm to warm. Pedal hair absent. No varicosities noted. Neuro: Protective sensation is grossly intact to light touch and monofilament testing, patient reports intermittent sporadic numbness and tingling to the feet. MSK: No pain on palpation to the feet and ankles. Range of motion of the forefoot, hindfoot, and ankles within normal limits. No crepitus or fluctuance noted. Pes planus foot type noted. Nonantalgic unassisted gait noted. Office Procedures Diabetic Foot Exam G9226 - Diabetic Foot Exam Results Reviewed Results Reviewed: Laboratory Tests 08/11/25 08/11/25 09:45 11:19 Random Glucose 178 H Hgb A1c (Clinic) 6.8 H AST 37 ALT 44 H Assessment & Plan Assessment & Plan (1) DM type 2 (diabetes mellitus, type 2): Code(s): E11.9 - Type 2 diabetes mellitus without complications Category: Medical (2) Diabetic neuropathy: Code(s): E11.40 - Type 2 diabetes mellitus with diabetic neuropathy, unspecified Category: Medical (3) Pes planus: Code(s): M21.40 - Flat foot [pes planus] (acquired), unspecified foot Category: Medical (4) Tinea unguium: Code(s): B35.1 - Tinea unguium Category: Medical Plan Patient was informed and verbally consented to the use of an ambient scribe for clinic note documentation during this visit. Educated patient on diabetes in the affects on the lower extremities. Educated patient on pes planus foot type and complications that could arise without proper support. I discussed with the patient the importance of wearing s upportive footwear and the use of arch supports to manage flatfoot. We also talked about the necessity of daily foot inspections to prevent unnoticed injuries, especially in the context of potential neuropathy. - Prescribed diabetic shoes and inserts. - Recommend daily foot inspections to monitor for any wounds or changes, especially due to potential neuropathy. - Advised patient to wear supportive shoe gear and avoid barefoot walking. RTC in 9 weeks. Orders: Orders AMB Diabetic Foot Exam Today E11.40 - Type 2 diabetes mellitus with diabetic neuropathy, unspecified, E11.9 - Type 2 diabetes mellitus without complications Medications: New [Diabetic shoes and inserts] As directed; please provide 1 pair of shoes and 3 inserts 1 ea 0RF E11.40 - Type 2 diabetes mellitus with diabetic neuropathy, unspecified, E11.9 - Type 2 diabetes mellitus without complications, M21.40 - Flat foot [pes planus] (acquired), unspecified foot Coding Level of Care Code New Pt Level 4 (79605) Diagnoses DM type 2 (diabetes mellitus, type 2) E11.9 Diabetic neuropathy E11.40 Pes planus M21.40 Tinea unguium B35.1 CPT Codes Diabetic Foot Exam - CPT: G9226 - Diabetic Foot Exam ([id number]) Time Spent (min) 48
== END 2025-09-11 08:41 | disposition home or self-care (01) ==
LOC: HO.HPODS 08:16
PROVIDERS: PCP Internal Medicine; Visit Provider Student in an Organized Health Care Education/Training Program
DX: E11.40 Type 2 diabetes mellitus with diabetic neuropathy, unspecified (principal); M21.40 Flat foot [pes planus] (acquired), unspecified foot; B35.1 Tinea unguium
CPT/HCPCS: 99204; G9226

== ENCOUNTER → 2025-09-11 08:15 | Outpatient (BNVA) | payer OTHER, SELFPAY | PROVIDERS: PCP Internal Medicine; Visit Provider Student in an Organized Health Care Education/Training Program | DX: E11.40 Type 2 diabetes mellitus with diabetic neuropathy, unspecified (principal); M21.40 Flat foot [pes planus] (acquired), unspecified foot; B35.1 Tinea unguium | CPT/HCPCS: 99202 ==